=== PATIENT | female | born 1940 | race Caucasian/White ===

== ENCOUNTER 2019-01-14 13:22 | Emergency (ER) | payer OTHER ==
[2019-01-14] MEDS ORDERED: NA CHLORIDE 0.9% 500 ML ONE ×2 (13:45→15:21)
[2019-01-14 14:23] LABS: Absolute Lymphocytes (CBC) 2.4 K/uL (0.7-4.9); Basophils % 1.1 % (0-1.3); Hematocrit 42.3 % (36.0-45.0); Lymphocytes % 24.6 % (15.3-44.8); MPV 10.6 fL (7.6-11.3); RBC Red Blood Cell Count 4.36 M/uL (3.86-4.86)
[2019-01-14 14:57] LABS: Potassium 3.7 mmol/L (3.5-5.1)
[2019-01-14] MEDS ORDERED: INSULIN -REGULAR HUMAN 50 UNIT/0.5 ML ML ONE ×2 (15:21→17:19)
--- NOTE | 2019-01-14 18:20 | ER ---
Nurse's Notes [facility] Name: Jane Hyman Age: 78 yrs Sex: Female : 1940 Arrival Date: 01/14/2019 Time: 13:25 Bed 7 Private MD: Diagnosis: Hyperglycemia, unspecified Presentation: 01/14 13:25 Presenting complaint: EMS states: hyperglycemia since 12/27/18, highest reading was today aa5 at 586 and pt reports taking 70 units of Tresiba at 1215 today. 13:25 Transition of care: patient was not received from another setting of care. Onset of aa5 symptoms was December 2018. Risk Assessment: Do you want to hurt yourself or someone else? Patient reports no desire to harm self or others. Initial Sepsis Screen: Does the patient meet any 2 criteria? No. Patient's initial sepsis screen is negative. Does the patient have a suspected source of infection? No. Patient's initial sepsis screen is negative. Care prior to arrival: IV initiated. 24 G to L wrist. 13:25 Acuity: IDANIA 2 aa5 13:25 Method Of Arrival: EMS: [facility] aa5 Historical: - Allergies: 13:25 Levofloxacin; aa5 13:25 Vnkzjsj-Mmc-Qbk Reductase Inhibitors; aa5 13:25 Sulfa (Sulfonamide Antibiotics); aa5 - PMHx: 13:25 Cataracts; Hypertension; Hypothyroidism; Renal Disease; CHF; Atrial Fib; Diabetes; aa5 - PSHx: 13:25 foot surgery; Carpal Tunnel Repair; ; Hysterectomy; Tonsillectomy; shoulder aa5 surgery; Pacemaker/Defibrillator; - Ebola Screening: : No symptoms or risks identified at this time. Screenin:40 Abuse screen: Denies threats or abuse. Nutritional screening: No deficits noted. aa5 Tuberculosis screening: No symptoms or risk factors identified. Fall Risk IV access (20 points). Total Avery Fall Scale indicates No Risk (0-24 pts). Assessment: 13:25 General: Appears comfortable, Behavior is calm, cooperative. Pain: Denies pain. Neuro: aa5 Level of Consciousness is awake, alert, obeys commands, Oriented to person, place, time, situation. Cardiovascular: Heart tones S1 S2 present Rhythm is regular. Respiratory: Airway is patent Respiratory effort is even, unlabored, Respiratory pattern is regular, symmetrical, Breath sounds are clear bilaterally. GI: Abdomen is obese, Bowel sounds present X 4 quads. Abd is soft and non tender X 4 quads. Patient currently denies diarrhea, nausea, vomiting. : No signs and/or symptoms were reported regarding the genitourinary system. EENT: No signs and/or symptoms were reported regarding the EENT system. Derm: Skin is pink, warm \T\ dry. Musculoskeletal: Range of motion: intact in all extremities. 13:40 Reassessment: 2 missed attempts for blood draw, pt reports she is hard stick pt, aa5 contacted lab and they will come draw. . 13:48 Reassessment: transport tech at bedside at this time. . aa5 14:00 Reassessment: Patient is alert, oriented x 3, equal unlabored respirations, skin aa5 warm/dry/pink. Patient denies pain at this time. 15:00 Reassessment: Pt resting in bed with eyes closed respirations even and unlabored, skin aa5 is pink/warm/dry. . 16:00 Reassessment: Pt resting in bed with eyes closed, respirations even and unlabored, skin aa5 is pink/warm/dry . 18:17 Reassessment: Patient is alert, oriented x 3, equal unlabored respirations, skin aa5 warm/dry/pink. Patient denies pain at this time. 18:35 Reassessment: Patient is alert, oriented x 3, equal unlabored respirations, skin aa5 warm/dry/pink. Vital Signs: 13:25 BP 139 / 75; Pulse 88; Resp 16 S; Temp 98.4(O); Pulse Ox 96% on R/A; aa5 14:20 BP 107 / 77; Pulse 84; Resp 18 S; Pulse Ox 96% on R/A; aa5 15:00 BP 154 / 75; Pulse 85; Resp 16 S; Pulse Ox 96% on R/A; aa5 16:00 BP 137 / 72; Pulse 80; Resp 16 S; Pulse Ox 94% ; aa5 17:00 BP 132 / 73; Pulse 83; Resp 17; Pulse Ox 94% ; sv 18:33 BP 133 / 82; Pulse 80; Resp 18; Pulse Ox 96% on R/A; jb1 ED Course: 13:25 Patient arrived in ED. aa5 13:25 Arm band placed on Patient placed in an exam room, on a stretcher. aa5 13:25 Patient has correct armband on for positive identification. aa5 13:25 Maintain EMS IV. aa5 13:31 Triage completed. aa5 13:31 Johnson Dinero NP is PHCP. pm1 13:31 Pietro Arzola MD is Attending Physician. pm1 13:33 Albertina Santamaria, FLAVIA is Primary Nurse. aa5 18:35 No provider procedures requiring assistance completed. IV discontinued, intact, aa5 bleeding controlled, No redness/swelling at site. Pressure dressing applied. Administered Medications: 13:44 CANCELLED (Duplicate Order): NS 0.9% 500 ml IV at bolus once aa5 13:45 Drug: NS 0.9% 500 ml Route: IV; Rate: bolus; Site: left wrist; aa5 15:00 Follow up: IV Status: Completed infusion; IV Intake: 500ml aa5 15:20 Drug: NS 0.9% 500 ml Route: IV; Rate: bolus; Site: left wrist; aa5 16:30 Follow up: IV Status: Completed infusion; IV Intake: 500ml aa5 15:20 Drug: Insulin Regular Human 10 units {Co-Signature: mary jane (Karly Vasquez RN).} Route: aa5 IVP; Site: left wrist; 17:06 Follow up: Response: No adverse reaction; Glucose decreased aa5 17:30 Drug: Insulin Regular Human 5 units {Co-Signature: mary jane (Karly Vasquez RN).} Route: aa5 IVP; Site: left wrist; 18:17 Follow up: Response: No adverse reaction; FSBG is decreased aa5 Point of Care Testing: Blood Glucose: 18:17 Blood Glucose: 394 mg/dL; jp3 13:25 >500mg/dl aa5 Ranges: Intake: 15:00 IV: 500ml; Total: 500ml. aa5 16:30 IV: 500ml; Total: 1000ml. aa5 Outcome: 18:20 Discharge ordered by . pm1 18:35 Discharged to home aa5 18:35 Condition: stable 18:35 Discharge instructions given to patient, Instructed on discharge instructions, follow up and referral plans. Demonstrated understanding of instructions, follow-up care. 18:35 Condition: Awaiting for pt's sonPasquale, for ride home, per patient. aa5 20:34 Patient left the ED. tl1 Signatures: Shaji Leal jb1 Karly Vasquez RN RN sv Ablertina Santamaria RN RN aa5 Lou Heard RN RN tl1 Johnson Dinero, INDUSTRIAL PARAMEDIC INDUSTRIAL PARAMEDIC pm1 Isaak Ayala jp3 Karly Vasquez RN sv Corrections: (The following items were deleted from the chart) 13:35 13:25 BP 139 / 75; Pulse 88bpm; Resp 16bpm; Spontaneous; Pulse Ox 93% RA; Temp 98.4F aa5 Oral; aa5
--- NOTE | 2019-01-14 18:21 | EDPHYS ---
Physician Documentation [facility] Name: Jane Hyman Age: 78 yrs Sex: Female : 1940 Arrival Date: 01/14/2019 Time: 13:25 Bed 7 Private MD: ED Physician Pietro Arzola HPI: 01/14 15:22 This 78 yrs old Female presents to ER via EMS with complaints of High Blood pm1 Sugar. 15:22 The patient or guardian reports hyperglycemia, Treatment prior to arrival includes: pm1 taking additional insulin. Onset: The symptoms/episode began/occurred 1 month(s) ago. Associated signs and symptoms: Pertinent positives: polydipsia, polyphagia, polyuria. Current symptoms: In the emergency department the patient's symptoms have worsened. Patient with elevated blood sugars for the past 1 month. patient is taking a log and today her blood sugar was at its highest so she decided to get evaluated at the ER. Historical: - Allergies: 13:25 Levofloxacin; aa5 13:25 Qrzwrne-Lmt-Syl Reductase Inhibitors; aa5 13:25 Sulfa (Sulfonamide Antibiotics); aa5 - PMHx: 13:25 Cataracts; Hypertension; Hypothyroidism; Renal Disease; CHF; Atrial Fib; Diabetes; aa5 - PSHx: 13:25 foot surgery; Carpal Tunnel Repair; ; Hysterectomy; Tonsillectomy; shoulder aa5 surgery; Pacemaker/Defibrillator; - Ebola Screening: : No symptoms or risks identified at this time. ROS: 15:22 Constitutional: Negative for fever, chills, and weight loss, Eyes: Negative for injury, pm1 pain, redness, and discharge, ENT: Negative for injury, pain, and discharge, Neck: Negative for injury, pain, and swelling, Cardiovascular: Negative for chest pain, palpitations, and edema, Respiratory: Negative for shortness of breath, cough, wheezing, and pleuritic chest pain, Abdomen/GI: Negative for abdominal pain, nausea, vomiting, diarrhea, and constipation, Back: Negative for injury and pain, MS/Extremity: Negative for injury and deformity, Skin: Negative for injury, rash, and discoloration, Neuro: Negative for headache, weakness, numbness, tingling, and seizure. 15:22 Endocrine: Positive for polydipsia, polyphagia, polyuria. Exam: 15:22 Constitutional: This is a well developed, well nourished patient who is awake, alert, pm1 and in no acute distress. Head/Face: Normocephalic, atraumatic. Eyes: Pupils equal round and reactive to light, extra-ocular motions intact. Lids and lashes normal. Conjunctiva and sclera are non-icteric and not injected. Cornea within normal limits. Periorbital areas with no swelling, redness, or edema. ENT: Nares patent. No nasal discharge, no septal abnormalities noted. Tympanic membranes are normal and external auditory canals are clear. Oropharynx with no redness, swelling, or masses, exudates, or evidence of obstruction, uvula midline. Mucous membranes moist. Neck: Trachea midline, no thyromegaly or masses palpated, and no cervical lymphadenopathy. Supple, full range of motion without nuchal rigidity, or vertebral point tenderness. No Meningismus. Chest/axilla: Normal chest wall appearance and motion. Nontender with no deformity. No lesions are appreciated. Cardiovascular: Regular rate and rhythm with a normal S1 and S2. No gallops, murmurs, or rubs. Normal PMI, no JVD. No pulse deficits. Respiratory: Lungs have equal breath sounds bilaterally, clear to auscultation and percussion. No rales, rhonchi or wheezes noted. No increased work of breathing, no retractions or nasal flaring. Abdomen/GI: Soft, non-tender, with normal bowel sounds. No distension or tympany. No guarding or rebound. No evidence of tenderness throughout. Back: No spinal tenderness. No costovertebral tenderness. Full range of motion. Skin: Warm, dry with normal turgor. Normal color with no rashes, no lesions, and no evidence of cellulitis. MS/ Extremity: Pulses equal, no cyanosis. Neurovascular intact. Full, normal range of motion. 15:22 Neuro: Orientation: is normal, Motor: is normal, moves all fours. Vital Signs: 13:25 BP 139 / 75; Pulse 88; Resp 16 S; Temp 98.4(O); Pulse Ox 96% on R/A; aa5 14:20 BP 107 / 77; Pulse 84; Resp 18 S; Pulse Ox 96% on R/A; aa5 15:00 BP 154 / 75; Pulse 85; Resp 16 S; Pulse Ox 96% on R/A; aa5 16:00 BP 137 / 72; Pulse 80; Resp 16 S; Pulse Ox 94% ; aa5 17:00 BP 132 / 73; Pulse 83; Resp 17; Pulse Ox 94% ; sv 18:33 BP 133 / 82; Pulse 80; Resp 18; Pulse Ox 96% on R/A; jb1 MDM: 13:31 Patient medically screened. pm1 17:12 Data reviewed: vital signs. Data interpreted: Pulse oximetry: on room air is 96 %. pm1 Interpretation: normal. 18:18 Counseling: I had a detailed discussion with the patient and/or guardian regarding: the pm1 historical points, exam findings, and any diagnostic results supporting the discharge/admit diagnosis, lab results, the need for outpatient follow up, to return to the emergency department if symptoms worsen or persist or if there are any questions or concerns that arise at home. 01/14 13:29 Order name: CBC with Diff; Complete Time: 14:58 [facility] 01/14 13:29 Order name: Chem 7; Complete Time: 15:22 [facility] 01/14 16:24 Order name: Glucose; Complete Time: 17:15 aa 01/14 18:18 Order name: Glucose, Ancillary Testing; Complete Time: 18:31 EDMS Administered Medications: 13:44 CANCELLED (Duplicate Order): NS 0.9% 500 ml IV at bolus once aa5 13:45 Drug: NS 0.9% 500 ml Route: IV; Rate: bolus; Site: left wrist; aa5 15:00 Follow up: IV Status: Completed infusion; IV Intake: 500ml aa5 15:20 Drug: NS 0.9% 500 ml Route: IV; Rate: bolus; Site: left wrist; aa5 16:30 Follow up: IV Status: Completed infusion; IV Intake: 500ml aa5 15:20 Drug: Insulin Regular Human 10 units {Co-Signature: mary jane (Karly Vasquez RN).} Route: aa5 IVP; Site: left wrist; 17:06 Follow up: Response: No adverse reaction; Glucose decreased aa5 17:30 Drug: Insulin Regular Human 5 units {Co-Signature: mary jane (Karly Vasquez RN).} Route: aa5 IVP; Site: left wrist; 18:17 Follow up: Response: No adverse reaction; FSBG is decreased aa5 Point of Care Testing: Blood Glucose: 18:17 Blood Glucose: 394 mg/dL; jp3 13:25 >500mg/dl aa5 Ranges: Critical Glucose Levels:Adult <50 mg/dl or >400 mg/dl <40 mg/dl or >180 mg/dl Disposition: 01/15 08:59 Co-signature as Attending Physician, Pietro Arzola MD I agree with the assessment and kdr plan of care. Disposition: 01/14/19 18:20 Discharged to Home. Impression: Hyperglycemia, unspecified. - Condition is Stable. - Discharge Instructions: Hyperglycemia, Blood Glucose Monitoring, Adult. - Medication Reconciliation Form, Thank You Letter, Antibiotic Education, Prescription Opioid Use form. - Follow up: Emergency Department; When: As needed; Reason: Worsening of condition. Follow up: Private Physician; When: 2 - 3 days; Reason: Recheck today's complaints, Continuance of care, Re-evaluation by your physician. - Problem is new. - Symptoms have improved. Signatures: Dispatcher [employer] [facility] Pietro Arzola MD MD kdr Albertina Santamaria, RN RN aa5 Lou Heard RN RN tl1 Johnson Dinero, LOSS PREVENTION INVESTIGATOR LOSS PREVENTION INVESTIGATOR pm1 Karly Vasquez RN sv Corrections: (The following items were deleted from the chart) 01/14 13:44 13:44 NS 0.9% 500 ml IV at bolus once ordered. aa5 aa5 17:48 13:27 GLUCOSE+C.LAB.BRZ ordered. [facility] EDKY 20:34 18:20 01/14/2019 18:20 Discharged to Home. Impression: Hyperglycemia, unspecified. tl1 Condition is Stable. Forms are Medication Reconciliation Form, Thank You Letter, Antibiotic Education, Prescription Opioid Use. Follow up: Emergency Department; When: As needed; Reason: Worsening of condition. Follow up: Private Physician; When: 2 - 3 days; Reason: Recheck today's complaints, Continuance of care, Re-evaluation by your physician. Problem is new. Symptoms have improved. pm1
[2019-01-14 21:22] VITALS: TEMP 98.4
[2019-01-14 21:29] VITALS: BP 133/82; O2SAT 96
== END 2019-01-14 20:34 | disposition home or self-care (01) ==
LOC: ER 13:22
DX: E11.65 Type 2 diabetes mellitus with hyperglycemia (principal); I12.9 Hypertensive chronic kidney disease with stage 1 through stage 4 chronic kidney disease, or unspecified chronic kidney disease; E11.22 Type 2 diabetes mellitus with diabetic chronic kidney disease; N18.9 Chronic kidney disease, unspecified; Z88.1 Allergy status to other antibiotic agents; Z88.2 Allergy status to sulfonamides; Z88.8 Allergy status to other drugs, medicaments and biological substances; Z95.810 Presence of automatic (implantable) cardiac defibrillator
CPT/HCPCS: 36415; 80048; 82947; 82962; 85025; 96361; 96374; 99283

== ENCOUNTER 2019-01-18 12:48 | Observation (INO) | payer OTHER ==
--- NOTE | 2019-01-18 13:41 | RAD REPORT ---
EXAM DESCRIPTION: RAD - Chest Single View - 01/18/2019 1:19 pm CLINICAL HISTORY: Fall, weakness, dizziness, chest pain COMPARISON: April 2017 TECHNIQUE: AP portable chest image was obtained 1315 hours . FINDINGS: Low lung volumes are noted. No peripheral mass or consolidation. Defibrillator has been pl aced since the prior study. Heart and vasculature are normal. No measurable pleural effusion and no p neumothorax. No acute bony abnormality seen. No acute aortic findings suspected. IMPRESSION: No acute cardiopulmonary process.
--- NOTE | 2019-01-18 13:44 | RAD REPORT ---
EXAM DESCRIPTION: CT - [id number] - 01/18/2019 1:24 pm CLINICAL HISTORY: , head and neck injury COMPARISON: MR IAC examination November 2018 TECHNIQUE: Axial 5 mm thick images of the head were obtained. Axial 2 mm thick images of the cervic al spine were obtained with sagittal and coronal reconstruction images generated and reviewed. All CT scans are performed using dose optimization technique as appropriate and may include automated exposure control or mA/KV adjustment according to patient size. FINDINGS: No intracranial hemorrhage, mass, edema or acute intracranial finding. No suspicion for ac [place] infarction. Atrophy and chronic ischemic changes are present. Mastoid air cells and paranasal sin uses are clear of acute finding. No globe or orbit abnormality seen. Patient has normal variant hyper ostosis frontalis interna. Dense arterial tree calcifications. Cervical body height and alignment are normal. No disk space narrowing. No fracture or acute bony abn ormality. Central canal detail is inherently limited. No paraspinal mass or hematoma. IMPRESSION: Negative CT head examination for acute or significant finding. Patient has underlying at rophy and chronic ischemic change. Negative CT cervical spine examination for acute or significant finding.
[2019-01-18 14:00] LABS: Absolute Lymphocytes (CBC) 2.3 K/uL (0.7-4.9); Basophils % 0.7 % (0-1.3); Hematocrit 43.4 % (36.0-45.0); Lymphocytes % 19.6 % (15.3-44.8); MPV 9.8 fL (7.6-11.3); RBC Red Blood Cell Count 4.63 M/uL (3.86-4.86)
[2019-01-18 14:03] LABS: Protime INR 1.75
[2019-01-18 14:15] LABS: ALT/SGPT 16 U/L (12-78); AST/SGOT 14 U/L (15-37); Albumin 2.8 g/dL (3.4-5.0); Alkaline Phosphatase 110 U/L (45-117); BUN Blood Urea Nitrogen 19 mg/dL (7-18); Bicarbonate 29 mmol/L (21-32); Bilirubin Direct 0.1 mg/dL (0-0.2); Bilirubin Total 0.5 mg/dL (0.2-1.0); Glucose Level 360 mg/dL (74-106); NT PRO-BNP 681 pg/mL (<450); Potassium 3.3 mmol/L (3.5-5.1); Protein, Total 6.9 g/dL (6.4-8.2); Sodium Level 137 mmol/L (136-145); Troponin (Emerg Dept Use Only) < 0.02 ng/mL (0.0-0.045)
[2019-01-18] MEDS ORDERED: INSULIN -REGULAR HUMAN 50 UNIT/0.5 ML ML ONE (15:08)
[2019-01-18] MEDS ORDERED: NA CHLORIDE 0.9% 500 ML ONE (15:08)
--- NOTE | 2019-01-18 15:13 | EDPHYS ---
Physician Documentation [facility] Name: Jane Hyman Age: 78 yrs Sex: Female : 1940 Arrival Date: 01/18/2019 Time: 12:53 Bed 19 Private MD: ED Physician Shawn Khan HPI: 01/18 13:05 This 78 yrs old Female presents to ER via EMS with complaints of Dizziness, cp Fall Injury. 13:05 The patient presents with lightheadedness. cp 13:05 Onset: The symptoms/episode began/occurred just prior to arrival. Context: occurred at home, just prior to the episode the patient experienced lightheadedness. Associated signs and symptoms: Pertinent positives: syncope, Pertinent negatives: abdominal pain, chest pain, focal weakness, vomiting. Patient's baseline: Neuro: alert and fully oriented, Motor: no deficits, Ambulation: walks without assistance, Speech: normal. Patient was found on ground by son in home. Patient unable to recall events prior to fall. Historical: - Allergies: 12:56 Levofloxacin; em 12:56 Zyabonp-Ruh-Ucp Reductase Inhibitors; em 12:56 Sulfa (Sulfonamide Antibiotics); em - Home Meds: 14:11 Xarelto 20 mg Oral tab once daily [Active]; spironolactone 50 mg Oral tab 1 tab once em daily [Active]; Lasix 40 mg Oral tab 1 tab once daily [Active]; levothyroxine 125 mcg tab 1 tab once daily [Active]; Metoprolol Tartrate Oral [Active]; Hydralazine Oral [Active]; Deplin (algal oil) oral oral [Active]; - PMHx: 12:56 Atrial Fib; Cataracts; CHF; Diabetes; Diabetes - NIDDM; Hypertension; Hypothyroidism; em Irregular heart rate; Renal Disease; ADD/ADHD; - PSHx: 12:56 foot surgery; Carpal Tunnel Repair; ; Hysterectomy; Tonsillectomy; shoulder em surgery; Pacemaker/Defibrillator; - Immunization history:: Adult Immunizations unknown. - Social history:: Smoking status: Patient/guardian denies using tobacco. - Ebola Screening: : Patient negative for fever greater than or equal to 101.5 degrees Fahrenheit, and additional compatible Ebola Virus Disease symptoms Patient denies exposure to infectious person Patient denies travel to an Ebola-affected area in the 21 days before illness onset No symptoms or risks identified at this time. ROS: 13:10 Constitutional: Negative for fever, poor PO intake. cp 13:10 Eyes: Negative for injury, pain, redness, and discharge. cp 13:10 ENT: Negative for drainage from ear(s), ear pain, sore throat, difficulty swallowing, cp difficulty handling secretions. 13:10 Neck: Negative for stiffness. 13:10 Cardiovascular: Negative for chest pain, edema, palpitations. 13:10 Respiratory: Negative for cough, shortness of breath, wheezing. 13:10 Abdomen/GI: Negative for abdominal pain, nausea, vomiting, and diarrhea, black/tarry stool, rectal bleeding. 13:10 Neuro: Positive for syncope, Negative for altered mental status, headache, weakness. 13:10 All other systems are negative. cp Exam: 13:20 Constitutional: The patient appears in no acute distress, alert, awake, cp non-diaphoretic, non-toxic, well developed, well nourished, obese. 13:20 Head/Face: Normocephalic, atraumatic. cp 13:20 Eyes: Periorbital structures: appear normal, Pupils: equal, round, and reactive to light and accomodation, Extraocular movements: intact throughout, Conjunctiva: normal, no exudate, no injection, Sclera: no appreciated abnormality, Lids and lashes: appear normal, bilaterally. 13:20 ENT: External ear(s): are unremarkable, Ear canal(s): are normal, clear, TM's: dullness, bilaterally, Nose: is normal, Mouth: Lips: moist, Oral mucosa: pink and intact, moist, Posterior pharynx: is normal, airway is patent, no erythema, no exudate. 13:20 Neck: C-spine: vertebral tenderness, is not appreciated, crepitus, is not appreciated. 13:20 Chest/axilla: Inspection: normal, Palpation: is normal, no crepitus, no tenderness. 13:20 Cardiovascular: Rate: normal, Rhythm: regular, Edema: is not appreciated, JVD: is not appreciated. 13:20 Respiratory: the patient does not display signs of respiratory distress, Respirations: normal, no use of accessory muscles, no retractions, no splinting, no tachypnea, Breath sounds: are clear throughout. 13:20 Abdomen/GI: Inspection: abdomen appears normal, Bowel sounds: active, all quadrants, Palpation: abdomen is soft and non-tender, in all quadrants, involuntary guarding, is not appreciated. 13:20 Back: pain, is absent, ROM is normal. 13:20 Skin: no rash present. 13:20 Neuro: Orientation: to person, place, situation, Mentation: is normal, Cerebellar function: is grossly normal, Motor: moves all fours, strength is normal. 14:15 ECG was reviewed by the Attending Physician. Vital Signs: 12:56 BP 110 / 59; Pulse 87; Resp 16; Temp 98.6; Pulse Ox 95% on R/A; Weight 119.29 kg; em Height 5 ft. 4 in. (162.56 cm); Pain 0/10; 14:00 BP 121 / 70; Pulse 77; Resp 18; Pulse Ox 99% on R/A; Pain 0/10; em 15:00 BP 158 / 92; Pulse 80; Resp 16; Pulse Ox 99% on R/A; em 16:00 BP 113 / 67; Pulse 85; Resp 15; Pulse Ox 99% on R/A; Pain 0/10; em 16:39 BP 112 / 75; Pulse 85; Resp 16; Temp 98.6(O); Pulse Ox 96% on R/A; Pain 0/10; em 12:56 Body Mass Index 45.14 (119.29 kg, 162.56 cm) em Mic Coma Score: 12:56 Eye Response: spontaneous(4). Verbal Response: oriented(5). Motor Response: obeys ss commands(6). Total: 15. Trauma Score (Adult): 12:56 Eye Response: spontaneous(1); Verbal Response: oriented(1); Motor Response: obeys ss commands(2); Systolic BP: > 89 mm Hg(4); Respiratory Rate: 10 to 29 per min(4); [place] Score: 15; Trauma Score: 12 MDM: 12:58 Patient medically screened. [facility] 14:00 Differential diagnosis: cardiac arrhythmia, CVA, head injury, hypovolemia, syncope. 15:00 Data reviewed: vital signs, nurses notes, lab test result(s), radiologic studies, CT cp scan, plain films. 15:05 Physician consultation: Dawn Whittaker MD was called at 15:05, was contacted at 15:05, cp regarding admission, to the telemetry unit. patient's condition. 01/18 13:02 Order name: Basic Metabolic Panel; Complete Time: 14:47 01/18 14:47 Interpretation: Normal except: K 3.3; GLUC 360; BUN 19; CRE 1.50; GFR 34. 01/18 13:02 Order name: CBC with Diff; Complete Time: 14:47 01/18 13:02 Order name: LFT's; Complete Time: 14:47 01/18 13:02 Order name: Magnesium; Complete Time: 14:47 01/18 13:02 Order name: NT PRO-BNP; Complete Time: 14:47 01/18 13:02 Order name: PT-INR; Complete Time: 14:47 01/18 13:02 Order name: Troponin (emerg Dept Use Only); Complete Time: 14:47 01/18 13:02 Order name: XRAY Chest (1 view); Complete Time: 13:56 01/18 13:56 Interpretation: Report review. 01/18 13:03 Order name: CT Head C Spine; Complete Time: 13:56 01/18 13:56 Interpretation: Reviewed report. 01/18 14:48 Order name: Urine Microscopic Only; Complete Time: 16:17 01/18 15:08 Order name: CPK; Complete Time: 16:17 01/18 16:07 Order name: Urine Dipstick--Ancillary (enter results) eb 01/18 16:10 Order name: Urine Dipstick-Ancillary; Complete Time: 16:17 EDMS 01/18 13:02 Order name: EKG; Complete Time: 13:03 01/18 13:02 Order name: Cardiac monitoring; Complete Time: 14:26 01/18 13:02 Order name: EKG - Nurse/Tech; Complete Time: 14:27 01/18 13:02 Order name: IV Saline Lock; Complete Time: 14:27 01/18 13:02 Order name: Labs collected and sent; Complete Time: 14:27 01/18 13:02 Order name: O2 Per Protocol; Complete Time: 14:27 01/18 13:02 Order name: O2 Sat Monitoring; Complete Time: 14:27 01/18 13:02 Order name: Accucheck Blood Glucose; Complete Time: 14:26 cp 01/18 14:48 Order name: Urine Dipstick-Ancillary (obtain specimen); Complete Time: 16:26 cp EC:15 Rate is 77 beats/min. Rhythm is regular, Paced. [place] interval is normal. QRS interval is cp prolonged at 124 msec. QT interval is normal. Interpreted by me. Reviewed by me. Administered Medications: 15:23 Drug: Insulin Regular Human 10 units {Co-Signature: em (Alex Reynaga ENVIRONMENTAL WE[employer]WLER).} Route: IVP; ss Site: left antecubital; 16:42 Follow up: Response: No adverse reaction; Blood sugar is lowered em 15:23 Drug: NS 0.9% 500 ml Route: IV; Rate: bolus; Site: left antecubital; ss 17:19 Follow up: IV Status: Completed infusion; IV Intake: 500ml em 16:20 Not Given (Other Intervention Used): Rocephin - (cefTRIAXone) 1 grams IVPB once over 30 ss mins; (mix in 50 mL NS) 16:36 Drug: Rocephin 1 grams Route: IV; Rate: calculated rate; Site: left antecubital; ss 16:42 Follow up: Response: No adverse reaction; IV Status: Completed infusion; IV Intake: 10mlem Point of Care Testing: Blood Glucose: 16:39 Blood Glucose: 238 mg/dL; em Ranges: Critical Glucose Levels:Adult <50 mg/dl or >400 mg/dl <40 mg/dl or >180 mg/dl Disposition: 01/19 09:17 Co-signature as Attending Physician, Shawn Khan MD I agree with the assessment and [facility] plan of care. Disposition: 01/18/19 15:12 Hospitalization ordered by Dawn Whittaker for Observation. Preliminary diagnosis are Syncope and collapse, Urinary tract infection, site not specified. - Bed requested for Telemetry/MedSurg (observation). - Status is Observation. em - Condition is Stable. - Problem is new. - Symptoms have improved. UTI on Admission? Yes Signatures: Dispatcher [employer] Asia Chung RN RN Shawn Khan MD MD cha Munoz, Edgar, LVN LVN em Niecy Guerrero RN RN Shawn Jani PA PA Alex Reynaga ENVIRONMENTAL WE[employer] CRAWLER em Corrections: (The following items were deleted from the chart) 01/18 16:13 15:12 Hospitalization Ordered by Dawn Whittaker MD for Observation. Preliminary diagnosis dw is Syncope and collapse. Bed requested for Telemetry/MedSurg (observation). Status is Observation. Condition is Stable. Problem is new. Symptoms have improved. UTI on Admission? No. cp 16:18 16:13 01/18/2019 15:12 Hospitalization Ordered by Dawn Whittaker MD for Observation. cp Preliminary diagnosis is Syncope and collapse. Bed requested for Telemetry/MedSurg (observation). Status is Observation. Condition is Stable. Problem is new. Symptoms have improved. UTI on Admission? No. dw 16:52 16:18 01/18/2019 15:12 Hospitalization Ordered by Dawn Whittaker MD for Observation. dw Preliminary diagnosis is Syncope and collapse; Urinary tract infection, site not specified. Bed requested for Telemetry/MedSurg (observation). Status is Observation. Condition is Stable. Problem is new. Symptoms have improved. UTI on Admission? Yes. cp 17:22 16:52 01/18/2019 15:12 Hospitalization Ordered by Dawn Whittaker MD for Observation. em Preliminary diagnosis is Syncope and collapse; Urinary tract infection, site not specified. Bed requested for Telemetry/MedSurg (observation). Status is Observation. Condition is Stable. Problem is new. Symptoms have improved. UTI on Admission? Yes. dw
--- NOTE | 2019-01-18 15:13 | ER ---
Nurse's Notes 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 Transition of care: patient was not received from another setting of care. Onset of symptoms was January 18, 2019. Risk Assessment: Do you want to hurt yourself or someone else? Patient reports no desire to harm self or others. Initial Sepsis Screen: Does the patient meet any 2 criteria? No. Patient's initial sepsis screen is negative. Does the patient have a suspected source of infection? No. Patient's initial sepsis screen is negative. Care prior to arrival: None. 12:53 Method Of Arrival: EMS: [facility] em 12:53 Care prior to arrival: Medication(s) given: Normal saline infusion, 350 mL Phenergan, em 12.5 mg. 12:53 Mechanism of Injury: Fall from standing position. Trauma event details: Injury occurred ss in the [facility], Injury occurred: at home. Injury occurred: January 18, 2019. 12:58 Acuity: IDANIA 3 ss Triage Assessment: 12:53 General: Appears in no apparent distress. Behavior is calm, cooperative, Denies fever, ss feeling ill, fatigue, chills. Pain: Denies pain. EENT: Nares are clear Oral mucosa is moist. Neuro: Level of Consciousness is awake, alert, obeys commands, Oriented to person, place, Reports intermittent dizziness. Cardiovascular: Capillary refill < 3 seconds is brisk in bilateral fingers Patient's skin is warm and dry. Respiratory: Airway is patent Respiratory effort is even, unlabored, Respiratory pattern is regular, symmetrical. GI: Patient currently denies abdominal pain, diarrhea, nausea, vomiting. : No signs and/or symptoms were reported regarding the genitourinary system. Musculoskeletal: Circulation, motion, and sensation intact. Range of motion: intact in all extremities. 15:41 : skin is very red under breasts and groin/ pelvic area. Antifungal treatment/ ss barrier cream has been applied to area and patient has been cleaned thoroughly . Patient is grateful for care received thus far, and verbalizes understanding that they may need more help in the future at home with ADLs. Trauma Activation: Not Applicable Physician: ED Physician; Name: ; Notified At: ; Arrived At: Physician: General Surgeon; Name: ; Notified At: ; Arrived At: Physician: Radiology; Name: ; Notified At: ; Arrived At: Physician: Respiratory; Name: ; Notified At: ; Arrived At: Physician: Lab; Name: ; Notified At: ; Arrived At: Historical: - Allergies: 12:56 Levofloxacin; em 12:56 Hssbthe-Sjx-Ugk Reductase Inhibitors; em 12:56 Sulfa (Sulfonamide Antibiotics); em - Home Meds: 14:11 Xarelto 20 mg Oral tab once daily [Active]; spironolactone 50 mg Oral tab 1 tab once em daily [Active]; Lasix 40 mg Oral tab 1 tab once daily [Active]; levothyroxine 125 mcg tab 1 tab once daily [Active]; Metoprolol Tartrate Oral [Active]; Hydralazine Oral [Active]; Deplin (algal oil) oral oral [Active]; - PMHx: 12:56 Atrial Fib; Cataracts; CHF; Diabetes; Diabetes - NIDDM; Hypertension; Hypothyroidism; em Irregular heart rate; Renal Disease; ADD/ADHD; - PSHx: 12:56 foot surgery; Carpal Tunnel Repair; ; Hysterectomy; Tonsillectomy; shoulder em surgery; Pacemaker/Defibrillator; - Immunization history:: Adult Immunizations unknown. - Social history:: Smoking status: Patient/guardian denies using tobacco. - Ebola Screening: : Patient negative for fever greater than or equal to 101.5 degrees Fahrenheit, and additional compatible Ebola Virus Disease symptoms Patient denies exposure to infectious person Patient denies travel to an Ebola-affected area in the 21 days before illness onset No symptoms or risks identified at this time. Screenin:53 Abuse screen: Denies threats or abuse. Nutritional screening: No deficits noted. em Tuberculosis screening: No symptoms or risk factors identified. Fall Risk None identified. Primary Survey: 12:53 NO uncontrolled hemorrhage observed. A: The patient is alert. Airway: patent, No ss supplemental oxygen in use on arrival. Oral cavity: clear, Trachea midline. Breathing/Chest: Respiratory pattern: regular, Respiratory effort: spontaneous, unlabored, Breath sounds: clear, bilaterally. Chest inspection: symmetrical rise and fall of the chest. Circulation: Pulses: palpable right radial artery, right posterior tibial artery, left radial artery and left posterior tibial artery. Skin color: pink, Skin temperature: warm. Disability Alert. Exposure/Environment: There is no evidence of uncontrolled external bleeding. 13:30 Reassessment Airway Airway Patent Oxygen No O2 Oral cavity Clear Trachea Midline ss Breathing/Chest Respiratory pattern Regular Circulation Pulses Palpable Color [place] Temperature Warm Disability Alert. Secondary Survey: 12:53 HEENT: No deficits noted. Musculoskeletal: Circulation, motion, and sensation intact. ss Range of motion: intact in all extremities, Swelling absent. Assessment: 12:53 General: SEE TRIAGE ASSESSMENT. ss 13:30 Reassessment: Patient appears in no apparent distress at this time. Patient and/or em family updated on plan of care and expected duration. Pain level reassessed. Patient is alert, oriented x 3, equal unlabored respirations, skin warm/dry/pink. 14:29 Reassessment: Patient appears in no apparent distress at this time. Patient and/or em family updated on plan of care and expected duration. Pain level reassessed. Patient is alert, oriented x 3, equal unlabored respirations, skin warm/dry/pink. still reports being dizzy. 15:00 Reassessment: Patient appears in no apparent distress at this time. Patient and/or em family updated on plan of care and expected duration. Pain level reassessed. Patient is alert, oriented x 3, equal unlabored respirations, skin warm/dry/pink. Patient denies pain at this time. Patient states feeling better. Patient states symptoms have improved. 16:38 Reassessment: Patient appears in no apparent distress at this time. Patient and/or em family updated on plan of care and expected duration. Pain level reassessed. Patient is alert, oriented x 3, equal unlabored respirations, skin warm/dry/pink. Patient states feeling better. Patient states symptoms have improved. Vital Signs: 12:56 BP 110 / 59; Pulse 87; Resp 16; Temp 98.6; Pulse Ox 95% on R/A; Weight 119.29 kg; em Height 5 ft. 4 in. (162.56 cm); Pain 0/10; 14:00 BP 121 / 70; Pulse 77; Resp 18; Pulse Ox 99% on R/A; Pain 0/10; em 15:00 BP 158 / 92; Pulse 80; Resp 16; Pulse Ox 99% on R/A; em 16:00 BP 113 / 67; Pulse 85; Resp 15; Pulse Ox 99% on R/A; Pain 0/10; em 16:39 BP 112 / 75; Pulse 85; Resp 16; Temp 98.6(O); Pulse Ox 96% on R/A; Pain 0/10; em 12:56 Body Mass Index 45.14 (119.29 kg, 162.56 cm) em Mic Coma Score: 12:56 Eye Response: spontaneous(4). Verbal Response: oriented(5). Motor Response: obeys ss commands(6). Total: 15. Trauma Score (Adult): 12:56 Eye Response: spontaneous(1); Verbal Response: oriented(1); Motor Response: obeys ss commands(2); Systolic BP: > 89 mm Hg(4); Respiratory Rate: 10 to 29 per min(4); [place] Score: 15; Trauma Score: 12 ED Course: 12:53 Patient arrived in ED. em 12:53 Shawn Jain PA is PHCP. cp 12:53 Shawn Khan MD is Attending Physician. cp 12:56 Arm band placed on. em 12:56 Patient has correct armband on for positive identification. Placed in gown. Bed in low em position. Call light in reach. Side rails up X2. Pulse ox on. NIBP on. Sitter at bedside. 12:56 Maintain EMS IV. Dressing intact. Good blood return noted. Site clean \T\ dry. Gauge \T\ em site: 20 LAC. 12:56 Patient maintains SpO2 saturation greater than 95% on room air. ss 12:58 Triage completed. ss 13:00 Thermoregulation: warm blanket given to patient. ss 13:20 XRAY Chest (1 view) In Process Unspecified. EDMS 13:24 CT completed. Patient tolerated procedure well. Patient moved back from CT. mw3 13:26 CT Head C Spine In Process Unspecified. EDMS 13:43 Alex Reynaga LVN is Primary Nurse. em 15:12 Dawn Whittaker MD is Hospitalizing Provider. cp 17:14 No provider procedures requiring assistance completed. Patient admitted, IV remains in em place. Administered Medications: 15:23 Drug: Insulin Regular Human 10 units {Co-Signature: em (Alex Reynaga LVN).} Route: IVP; ss Site: left antecubital; 16:42 Follow up: Response: No adverse reaction; Blood sugar is lowered em 15:23 Drug: NS 0.9% 500 ml Route: IV; Rate: bolus; Site: left antecubital; ss 17:19 Follow up: IV Status: Completed infusion; IV Intake: 500ml em 16:20 Not Given (Other Intervention Used): Rocephin - (cefTRIAXone) 1 grams IVPB once over 30 ss mins; (mix in 50 mL NS) 16:36 Drug: Rocephin 1 grams Route: IV; Rate: calculated rate; Site: left antecubital; ss 16:42 Follow up: Response: No adverse reaction; IV Status: Completed infusion; IV Intake: 10mlem Point of Care Testing: Blood Glucose: 16:39 Blood Glucose: 238 mg/dL; em Ranges: Intake: 16:30 PO: 100ml (Water); Total: 100ml. ss 16:42 IV: 10ml; Total: 110ml. em 17:19 IV: 500ml; Total: 610ml. em Outcome: 15:12 Decision to Hospitalize by Provider. cp 17:14 Admitted to Med/surg accompanied by tech, family with patient, via stretcher, room 207, em Report called to FLAVIA Jeffery 17:14 Condition: good 17:14 Instructed on the need for admit, Demonstrated understanding of instructions. 17:20 Patient's length of stay in the Emergency Department was greater than 2 hours. ss AdmissionPatient's length of stay extended due to 17:22 Patient left the ED. em Signatures: Dispatcher [employer] Alex Gr LVN LVN em Niecy Guerrero RN RN Shawn Jain PA PA cp Willis, Michelle mw3 lAex Reynaga LVN em Corrections: (The following items were deleted from the chart) 14:28 12:56 Pulse 87bpm; Resp 16bpm; Pulse Ox 95% RA; Temp 98.6F; 119.29 kg; Height 5 ft. 4 em in.; BMI: 45.1; Pain 0/10; em 15:59 12:53 Derm: Skin is intact, is healthy with good turgor, Skin is pink, warm \T\ dry. ss normal, ss 16:26 15:41 : skin is very red under breasts and groin/ pelvic area. Antifungal treatment/ ss barrier cream has been applied to area and patient has been cleaned thoroughly . Patient is grateful for care received thus far, and verbalizes understanding that they may need more help in the future at home with ADLs ss 16:27 15:41 : skin is very red under breasts and groin/ pelvic area. Antifungal treatment/ ss barrier cream has been applied to area and patient has been cleaned thoroughly . Patient is grateful for care received thus far, and verbalizes understanding that they may need more help in the future at home with ADLs ss 16:29 15:41 : skin is very red under breasts and groin/ pelvic area. Antifungal treatment/ ss barrier cream has been applied to area and patient has been cleaned thoroughly . Patient is grateful for care received thus far, and verbalizes understanding that they may need more help in the future at home with ADLs
[2019-01-18 16:07] LABS: Urine Bacteria LOADED /HPF (<20); Urine RBC NONE SEEN /HPF (NONE SEEN)
[2019-01-18 16:08] LABS: Urine Culture Reflex Order REFLEXED
[2019-01-18 16:09] LABS: Urine Blood NEGATIVE (NEG); Urine Glucose 2+ (NEG); Urine Protein NEGATIVE (NEG); Urine pH 5.5 (5.0-7.0)
[2019-01-18] MEDS ORDERED: CEFTRIAXONE/SWI 1gm 1 GM/10 ML SYR ONE (16:30)
--- NOTE | 2019-01-18 17:35 | P.HP ---
Certification for Inpatient Patient admitted to: Observation With expected LOS: <2 Midnights Practitioner: I am a practitioner with admitting privileges, knowledge of patient current condition, hospital course, and medical plan of care. Services: Services provided to patient in accordance with Admission requirements found in Title 42 Section 412.3 of the Code of Federal Regulations Patient History Date of Service: 01/18/19 Primary Care Provider: Dr. Zarate, Cardio: Dr. Funez Reason for admission: Syncopal episode History of Present Illness: This is a 78-year-old female with past medical history of atrial fibrillation, CHF, eem-wkmhfst-nikrbiehc diabetes, hypertension, hypothyroidism and chronic renal disease who presented to the emergency room with episode of syncope. Per patient and son at bedside, patient fell this morning. She had her face but not her head. She was sitting up in her chair, sleeping. It seems that when she woke up and got up from the chair, she fell. She denies any symptoms prior to the fall. She denied any dizziness, chest pain, shortness of breath at that time. She states that after the fall though she has been more dizzy. She also endorses burning on urination, frequency and urgency of urination. She is not sure how long this has been going on. In the ER, blood pressure was 110/59, heart rate of 87, respirations 16, afebrile at 98.6, 95% on room air and a BMI of 45.14. Her labs was remarkable for hypo kalemia, creatinine of 1.5, blood sugar of 360. Her urine studies was remarkable for nitrite and loaded with bacteria. Her chest x-ray was without any acute abnormalities. Head CT was negative. In the ER, she received Rocephin, insulin, IV fluids 500 bolus. At the time of my exam, she was alert oriented x3, in no acute distress and hemodynamically stable. She states her dizziness is kind of improved at this time. Allergies levofloxacin [From Levaquin] Allergy (Verified 04/30/17 20:09) Hives Ehkbfqb-Hmr-Mbs Reductase Inhibitor Allergy (Verified 04/30/17 20:09) Hives Sulfa (Sulfonamide Antibiotics) [Sulfa(Sulfonamide Antibiotics)] Allergy ( Verified 04/30/17 20:09) Hives Home medications list reviewed: No (Patient does not have medication list at this time) Home Medications: Insulin 70/30 NPH/Reg Human [Novolin 70/30*] 40 unit SQ BID 09/20/15 Amiodarone HCl [Pacerone] 200 mg PO BID 04/30/17 Levomefolate/Algal Oil [Deplin-Algal Oil 15 mg Capsule] 15 mg PO BID 04/30/17 Aspirin [Ecotrin 81 MG] 81 mg PO DAILY 07/15/17 Cholecalciferol (Vitamin D3) [Dialyvite Vitamin D3 Max] 50,000 unit PO EVERY 7TH DAY 07/15/17 Furosemide [Lasix] 20 mg PO DAILY 07/15/17 Hydralazine [Apresoline] 25 mg PO TID 07/15/17 Isosorbide Dinitrate 10 mg PO TID 07/15/17 Levothyroxine [Synthroid] 112 mcg PO [id number] 07/15/17 Metoprolol Succinate [Toprol Xl] 50 mg PO DAILY 07/15/17 Potassium Chloride 10 meq PO DAILY 07/15/17 Ranolazine [Ranexa] 500 mg PO BID 07/15/17 Rivaroxaban [Xarelto] 15 mg PO DAILY 07/15/17 Spironolactone [Aldactone] 12.5 mg PO DAILY 07/15/17 Ticagrelor [Brilinta] 90 mg PO BID 07/15/17 - Past Medical/Surgical History Diabetic: Yes -: HTN -: kidney stones -: DM -: Hypertension -: A.Fib -: CAD -: Chronic systolic CHF -: cataracts -: hypothyroidism -: renal disease -: Hysterectomy -: Ureter stent -: tonsillectomy -: -: carpal tunnel repair -: shoulder sx tumor removal L -: cardioversion May 2012 -: Stent placement 03/08 x 5 - Social History Alcohol use: No CD- Drugs: No Caffeine use: No Review of Systems 10-point ROS is otherwise unremarkable Physical Examination - Vital Signs Temperature: 98.6 F Blood Pressure: 121/70 Pulse: 77 Respirations: 18 - Physical Exam General: Alert, In no apparent distress, Oriented x3 HEENT: Atraumatic, PERRLA, Mucous membr. moist/pink, EOMI, Sclerae nonicteric Neck: Supple, 2+ carotid pulse no bruit, No LAD, Without JVD or thyroid abnormality Respiratory: Clear to auscultation bilaterally, Normal air movement Cardiovascular: Regular rate/rhythm, Normal S1 S2 Gastrointestinal: Normal bowel sounds, No tenderness Musculoskeletal: No tenderness Integumentary: No rashes Neurological: Normal gait, Normal speech, Normal strength at 5/5 x4 extr, Normal tone, Normal affect Lymphatics: No axilla or inguinal lymphadenopathy - Studies Laboratory Data (last 24 hrs) 01/18/19 13:45: PT 20.2 H, INR 1.75 01/18/19 13:45: WBC 11.8 H D, Hgb 14.5, Hct 43.4, Plt Count 217 01/18/19 13:45: Sodium 137, Potassium 3.3 L, BUN 19 H, Creatinine 1.50 H, Glucose 360 H, Magnesium 2.0, Total Bilirubin 0.5, AST 14 L, ALT 16, Alkaline Phosphatase 110 Assessment and Plan - Problems (Diagnosis) (1) Syncopal episodes Current Visit: Yes Status: Acute Plan: Unsure of etiology, likely secondary to urinary tract infection. -will evaluate with carotid ultrasound as well as an echo, due to patient's underlying medical diseases. -continue to monitor -continue to monitor labs -hold IV fluids due to CHF history -continue antibiotics Qualifiers: Syncope type: unspecified Qualified Code(s): R55 - Syncope and collapse (2) Atrial fibrillation Current Visit: No Status: Chronic Plan: Stable, will restart home medication Qualifiers: Atrial fibrillation type: chronic Qualified Code(s): I48.2 - Chronic atrial fibrillation (3) CHF (congestive heart failure) Current Visit: No Status: Chronic Plan: Restart home medications. -echo pending Qualifiers: Heart failure type: combined systolic and diastolic Heart failure chronicity: chronic Qualified Code(s): I50.42 - Chronic combined systolic ( congestive) and diastolic (congestive) heart failure (4) CAD (coronary artery disease) Onset Date: 05/01/17 Current Visit: No Status: Chronic Qualifiers: Coronary Disease-Associated Artery/Lesion type: [place] artery [place] vs. transplanted heart: [place] heart Associated angina: without angina Qualified Code(s): I25.10 - Atherosclerotic heart disease of [place] coronary artery without angina pectoris (5) Chronic renal disease Current Visit: No Status: Chronic Plan: Creatinine seems to be at baseline Qualifiers: Chronic kidney disease stage: stage 3 (moderate) Qualified Code(s): N18.3 - Chronic kidney disease, stage 3 (moderate) (6) Diabetes mellitus Onset Date: 05/01/17 Current Visit: No Status: Chronic Plan: Accu-Cheks and mild sliding scale insulin. -Will monitor blood sugars and adjust insulin as needed. Qualifiers: Diabetes mellitus type: type 2 Diabetes mellitus buttermaker insulin use: without fdc use Diabetes mellitus complication status: with hyperglycemia Qualified Code(s): E11.65 - Type 2 diabetes mellitus with hyperglycemia (7) HTN (hypertension) Onset Date: 05/01/17 Current Visit: No Status: Chronic Qualifiers: Hypertension type: essential hypertension Qualified Code(s): I10 - Essential (primary) hypertension (8) Hypothyroidism Onset Date: 05/01/17 Current Visit: No Status: Chronic Qualifiers: Hypothyroidism type: unspecified Qualified Code(s): E03.9 - Hypothyroidism , unspecified (9) Obesity Current Visit: No Status: Chronic Qualifiers: Obesity classification: adult class 3 (BMI >= 40) (10) Urinary tract infectious disease Current Visit: No Status: Active Plan: Patient with evidence of urinary tract infection. -Start Rocephin -cultures pending, will follow up and adjust as needed. - Plan DVT prophylaxis: Lovenox GI prophylaxis: None Diet: Heart healthy Disposition: Admit to floor with tele. Continue to monitor overnight. Anticipate discharge home in the next 24 hr if workup negative and patient clinically improved. - Advance Directives Does patient have a Living Will: No Does patient have a Durable POA for Healthcare: No
[2019-01-18 18:14] VITALS: BMI 43.7
[2019-01-18] MEDS ORDERED: ENOXAPARIN 40 MG/0.4 ML SQ SCH (18:30)
[2019-01-18 18:44] LABS: Thyroid Stimulating Hormone 9.98 uIU/mL (0.360-3.740)
[2019-01-18] MEDS ORDERED: D50W 25 GM/50 ML SYRINGE IV PRN (19:18)
[2019-01-18] MEDS ORDERED: GLUCAGON 1 MG/VIAL IM PRN (19:18)
[2019-01-18] MEDS ORDERED: POTASSIUM 25 MEQ EFFERV TAB PO ONE (20:00)
[2019-01-18] MEDS ORDERED: CEFTRIAXONE/SWI 1gm 1 GM/10 ML SYR IVP SCH (21:00)
[2019-01-18] MEDS ORDERED: PNEUMOCOCCAL VACCINE 0.5 ML IMVAC ONE (21:00)
[2019-01-18] MEDS: INSULIN -REGULAR HUMAN 50 UNIT/0.5 ML ML SQ SCH (21:13)
--- NOTE | 2019-01-18 22:56 | RAD REPORT ---
EXAM DESCRIPTION: US - CP - 01/18/2019 10:46 pm CLINICAL HISTORY: Syncopal episode CVA symptomology COMPARISON: Head C Spine Mpr Wo Con dated 01/18/2019; Iac W And Wo Cont dated 12/16/2018 TECHNIQUE: Real-time sonographic evaluation of both carotid systems was performed. Doppler interroga tion was performed with waveform tracing bilaterally. FINDINGS: Normal high resistance waveforms are noted in both external carotid arteries. The common c arotid arteries and internal carotid arteries show normal low resistance waveforms. Mild hard plaque is seen in both proximal internal carotid arteries. Peak systolic and end diastolic velocity values and the ICA/CCA ratios are in the non-hemodynamically significant range. Antegrade flow seen in both vertebral arteries. IMPRESSION: Mild hard plaquing noted in both proximal internal carotid arteries. No evidence of a hemodynamically significant stenosis.
[2019-01-19 06:04] LABS: Hematocrit 42.2 % (36.0-45.0); Lymphocytes % 30.5 % (15.3-44.8); MPV 9.8 fL (7.6-11.3); RBC Red Blood Cell Count 4.55 M/uL (3.86-4.86)
--- NOTE | 2019-01-19 06:13 | EKG ---
Test Date: 2019-01-18 Test Time: 14:11:27 Case Specialist: CATE MEASUREMENT RESULTS: Intervals: Rate: 77 IA: 154 QRSD: 124 QT: 472 QTc: 534 [place]: P: 62 IA: 154 QRS: 244 T: 57 INTERPRETIVE STATEMENTS: Atrial-sensed ventricular-paced rhythm tracking sinus rhythm Compared to ECG 04/30/2017 17:06:18 Sinus tachycardia no longer present Right-axis deviation no longer present Left bundle-branch block no longer present Electronically Signed On 01-19-19 06:12:45 CDT by Boris Funez
[2019-01-19 06:21] LABS: ALT/SGPT 15 U/L (12-78); AST/SGOT 13 U/L (15-37); Albumin 2.6 g/dL (3.4-5.0); Alkaline Phosphatase 95 U/L (45-117); BUN Blood Urea Nitrogen 19 mg/dL (7-18); Bicarbonate 29 mmol/L (21-32); Bilirubin Total 0.4 mg/dL (0.2-1.0); Glucose Level 283 mg/dL (74-106); HDL Cholesterol 36 mg/dL (40-60); LDL Cholesterol, Calculated 163 (<130); Phosphorus 1.9 mg/dL (2.5-4.9); Potassium 3.7 mmol/L (3.5-5.1); Protein, Total 6.8 g/dL (6.4-8.2); Sodium Level 139 mmol/L (136-145); Troponin I < 0.02 ng/mL (0.0-0.045)
[2019-01-19] MEDS ORDERED: POTASSIUM CL SA 10 MEQ TAB PO ONE (07:00)
[2019-01-19] MEDS: CEFTRIAXONE/SWI 1gm 1 GM/10 ML SYR IVP SCH ×2 (10:03→21:10)
[2019-01-19] MEDS: POTASS/SODIUM PHOSPHATE 1 PKT POWD.PACK PO SCH ×2 (10:03→12:15)
[2019-01-19] MEDS: INSULIN -REGULAR HUMAN 50 UNIT/0.5 ML ML SQ SCH ×4 (10:03→21:11)
[2019-01-19] MEDS ORDERED: MECLIZINE HCL 12.5 MG TAB PO PRN (10:56)
--- NOTE | 2019-01-19 10:56 | ECHO ---
HEIGHT: 5 ft 5 in WEIGHT: 263 lb 0 oz DATE OF STUDY: 01/19/[address]: Dawn Whittaker MD 2-DIMENSIONAL: YES M.MODE: YES DOPPLER: YES COLOR FLOW: YES TDS: NO PORTABLE: NO DEFINITY: NO BUBBLE STUDY: NO DIAGNOSIS: SYNCOPAL EPISODE CARDIAC HISTORY: CATHERIZATION: NO SURGERY: NO PROSTHETIC VALVE: NO PACEMAKER: YES MEASUREMENTS (cm) DIASTOLIC (NORMALS) SYSTOLIC (NORMALS) IVSd 1.4 (0.6-1.2) LA Diam (1.9-4.0) LVEF 60-69% LVIDd 3.6 (3.5-5.7) LVIDs 2.6 (2.0-3.5) %FS % LVPWd 1.5 (0.6-1.2) Ao Diam 2.7 (2.0-3.7) 2 DIMENSIONAL ASSESSMENT: RIGHT ATRIUM: NORMAL LEFT ATRIUM: NORMAL RIGHT VENTRICLE: NORMAL/PACEMAKER CATHETER LEFT VENTRICLE: NORMAL TRICUSPID VALVE: NORMAL MITRAL VALVE: NORMAL PULMONIC VALVE: NORMAL AORTIC VALVE: NORMAL PERICARDIAL EFFUSION: NONE AORTIC ROOT: NORMAL LEFT VENTRICULAR WALL MOTION: NORMAL. DOPPLER/COLOR FLOW: MILD TRICUSPID REGURGITATION. IMPAIRED LEFT VENTRICULAR RELAXATION. NORMAL RIGHT VENTRICULAR SYSTOLIC PRESSURE. COMMENTS: NORMAL LEFT VENTRICULAR EJECTION FRACTION. PACEMAKER IN RIGHT VENTRICLE OTHERWISE NORMAL 2D ECHO. MILD TRICUSPID REGURGITATION. IMPAIRED LEFT VENTRICULAR RELAXATION. TECHNOLOGIST: JASON CARLISLE
--- NOTE | 2019-01-19 11:13 | P.PN ---
Subjective Date of Service: 01/19/19 Primary Care Provider: Dr. Camarillo, Cardio: Dr. Funez Chief Complaint: Syncopal episode Subjective: No new changes Patient seen and examined at bedside. No family at bedside. Chart reviewed and case discussed with nursing staff. Patient reports no changes from yesterday. Continues report dizziness, especially when moving her even her head in bed. She states that she has a history of Meniere's disease. No acute events noted overnight No other complaints this morning Review of Systems 10-point ROS is otherwise unremarkable Physical Examination - Vital Signs Temperature: 97.6 F Blood Pressure: 171/75 Pulse: 83 Respirations: 18 Pulse Ox (%): 96 - Physical Exam General: Alert, In no apparent distress, Oriented x3, Obese HEENT: Atraumatic, PERRLA, EOMI Neck: Supple, JVD not distended Respiratory: Clear to auscultation bilaterally, Normal air movement Cardiovascular: Regular rate/rhythm, Normal S1 S2 Gastrointestinal: Normal bowel sounds, No tenderness Musculoskeletal: No tenderness Integumentary: No rashes Neurological: Normal speech, Normal tone, Normal affect Lymphatics: No axilla or inguinal lymphadenopathy - Studies Laboratory Data (last 24 hrs) 01/18/19 13:45: PT 20.2 H, INR 1.75 01/18/19 13:45: WBC 11.8 H D, Hgb 14.5, Hct 43.4, Plt Count 217 01/18/19 13:45: Sodium 137, Potassium 3.3 L, BUN 19 H, Creatinine 1.50 H, Glucose 360 H, Magnesium 2.0, Total Bilirubin 0.5, AST 14 L, ALT 16, Alkaline Phosphatase 110 Assessment And Plan - Current Problems (Diagnosis) (1) Syncopal episodes Current Visit: Yes Status: Acute Plan: Unsure of etiology, likely secondary to urinary tract infection vs mechanical fall after standing from a sitting position vs from Meniere's dizziness -echocardiogram done, ejection fraction of 60-69% with pacemaker in place and diastolic failure -bilateral carotid ultrasound with some plaquing but no hemodynamically significant stenosis noted. -continue to monitor -continue to monitor labs -hold IV fluids due to CHF history -continue antibiotics -physical therapy consult Qualifiers: Syncope type: unspecified Qualified Code(s): R55 - Syncope and collapse (2) Atrial fibrillation Current Visit: No Status: Chronic Plan: Stable, will restart home medication Qualifiers: Atrial fibrillation type: chronic Qualified Code(s): I48.2 - Chronic atrial fibrillation (3) CHF (congestive heart failure) Current Visit: No Status: Chronic Plan: Restart home medications. -echo with ejection fraction of 60-69%, pacemaker in place and diastolic dysfunction Qualifiers: Heart failure type: diastolic Heart failure chronicity: chronic Qualified Code(s): I50.32 - Chronic diastolic (congestive) heart failure (4) CAD (coronary artery disease) Onset Date: 05/01/17 Current Visit: No Status: Chronic Qualifiers: Coronary Disease-Associated Artery/Lesion type: [place] artery [place] vs. transplanted heart: [place] heart Associated angina: without angina Qualified Code(s): I25.10 - Atherosclerotic heart disease of [place] coronary artery without angina pectoris (5) Chronic renal disease Current Visit: No Status: Chronic Plan: Creatinine seems to be at baseline Qualifiers: Chronic kidney disease stage: stage 3 (moderate) Qualified Code(s): N18.3 - Chronic kidney disease, stage 3 (moderate) (6) Diabetes mellitus Onset Date: 05/01/17 Current Visit: No Status: Chronic Plan: Accu-Cheks and mild sliding scale insulin. -Will monitor blood sugars and adjust insulin as needed. Qualifiers: Diabetes mellitus type: type 2 Diabetes mellitus predatory animal exterminator insulin use: without predatory animal exterminator use Diabetes mellitus complication status: with hyperglycemia Qualified Code(s): E11.65 - Type 2 diabetes mellitus with hyperglycemia (7) HTN (hypertension) Onset Date: 05/01/17 Current Visit: No Status: Chronic Qualifiers: Hypertension type: essential hypertension Qualified Code(s): I10 - Essential (primary) hypertension (8) Hypothyroidism Onset Date: 05/01/17 Current Visit: No Status: Chronic Qualifiers: Hypothyroidism type: unspecified Qualified Code(s): E03.9 - Hypothyroidism , unspecified (9) Obesity Current Visit: No Status: Chronic Qualifiers: Obesity classification: adult class 3 (BMI >= 40) (10) Urinary tract infectious disease Current Visit: No Status: Active Plan: Patient with evidence of urinary tract infection. -Start Rocephin -cultures pending, will follow up and adjust as needed. (11) Menieres disease Current Visit: Yes Status: Acute Plan: Patient with a history Meniere's disease, she does take a medicine but she is not sure what. -Will try Antivert here in the hospital -physical therapy consultation Qualifiers: Laterality: unspecified laterality Qualified Code(s): H81.09 - Meniere's disease, unspecified ear - Plan DVT prophylaxis: Xarelto GI prophylaxis: None Diet: Heart healthy Disposition: Pending symptomatic improvement and physical therapy evaluation. Anticipate discharge home in the next 24 hr if workup negative and patient clinically improved.
[2019-01-19] MEDS: ISOSORBIDE DINIT 5 MG TAB PO SCH ×2 (13:39→21:12)
[2019-01-19] MEDS: HYDRALAZINE HCL 25 MG TABLET PO SCH ×2 (13:39→21:12)
[2019-01-19] MEDS: ALGAL OIL PO SCH (21:00)
[2019-01-19] MEDS: LEVOMEFOLATE PO SCH (21:00)
[2019-01-20 05:48] LABS: Absolute Lymphocytes (CBC) 2.9 K/uL (0.7-4.9); Basophils % 0.9 % (0-1.3); Hematocrit 41.9 % (36.0-45.0); Lymphocytes % 31.6 % (15.3-44.8); RBC Red Blood Cell Count 4.43 M/uL (3.86-4.86)
[2019-01-20 06:30] LABS: Albumin 2.5 g/dL (3.4-5.0); Bilirubin Total 0.4 mg/dL (0.2-1.0); Magnesium 1.9 mg/dL (1.8-2.4); Phosphorus 2.2 mg/dL (2.5-4.9); Potassium 4.2 mmol/L (3.5-5.1); Protein, Total 6.3 g/dL (6.4-8.2)
[2019-01-20] MEDS ORDERED: POTASS/SODIUM PHOSPHATE 1 PKT POWD.PACK PO SCH (07:00)
[2019-01-20] MEDS: ISOSORBIDE DINIT 5 MG TAB PO SCH ×3 (08:46→21:16)
[2019-01-20] MEDS: SPIRONOLACTONE 25 MG TABLET PO SCH (08:46)
[2019-01-20] MEDS: CEFTRIAXONE/SWI 1gm 1 GM/10 ML SYR IVP SCH (08:46)
[2019-01-20] MEDS: POTASS/SODIUM PHOSPHATE 1 PKT POWD.PACK PO SCH ×3 (08:47→10:33)
[2019-01-20] MEDS: HYDRALAZINE HCL 25 MG TABLET PO SCH ×3 (08:47→21:16)
[2019-01-20] MEDS: RIVAROXABAN 15 MG TABLET PO SCH (08:47)
[2019-01-20] MEDS: ASPIRIN EC 81 MG TAB PO SCH (08:47)
[2019-01-20] MEDS: METOPROLOL XL 50 MG TAB PO SCH (08:47)
[2019-01-20] MEDS: INSULIN -REGULAR HUMAN 50 UNIT/0.5 ML ML SQ SCH ×4 (08:47→21:18)
[2019-01-20] MEDS: FUROSEMIDE 40 MG TABLET PO SCH (08:48)
[2019-01-20] MEDS: LEVOMEFOLATE PO SCH ×2 (08:49→21:00)
[2019-01-20] MEDS: ALGAL OIL PO SCH ×2 (08:49→21:00)
[2019-01-20] MEDS ORDERED: CHOLECALCIFEROL PO SCH (09:00)
[2019-01-20] MEDS ORDERED: DRISDOL (VITAMIN D=ERGOCALCIFEROL) 50000 UNIT CAP PO SCH (09:00)
[2019-01-20] MEDS ORDERED: INSULIN DEGLUDEC 70 UNIT SQ SCH (09:00)
--- NOTE | 2019-01-20 11:54 | P.PN ---
Subjective Date of Service: 01/20/19 Primary Care Provider: Dr. Camarillo, Cardio: Dr. Funez Chief Complaint: Syncopal episode Subjective: No new changes Patient seen and examined at bedside. No family at bedside. Chart reviewed and case discussed with nursing staff. Patient reports no changes from yesterday. Continues report dizziness, especially when moving her even her head in bed. She states that she has a history of Meniere's disease. No acute events noted overnight No other complaints this morning Review of Systems 10-point ROS is otherwise unremarkable Physical Examination - Vital Signs Temperature: 98.5 F Blood Pressure: 163/72 Pulse: 91 Respirations: 18 Pulse Ox (%): 95 - Physical Exam General: Alert, In no apparent distress, Obese HEENT: Atraumatic, PERRLA, EOMI Neck: Supple, JVD not distended Respiratory: Clear to auscultation bilaterally, Normal air movement Cardiovascular: Regular rate/rhythm, Normal S1 S2 Gastrointestinal: Normal bowel sounds, No tenderness Musculoskeletal: No tenderness Integumentary: Rash(es) (Under bilateral breasts, pelvic area, under abdominal folds) Neurological: Normal speech, Normal tone, Normal affect Lymphatics: No axilla or inguinal lymphadenopathy Assessment And Plan - Current Problems (Diagnosis) (1) Syncopal episodes Current Visit: Yes Status: Acute Plan: Unsure of etiology, likely secondary to urinary tract infection vs mechanical fall after standing from a sitting position vs from Meniere's dizziness -echocardiogram done, ejection fraction of 60-69% with pacemaker in place and diastolic failure -bilateral carotid ultrasound with some plaquing but no hemodynamically significant stenosis noted. -continue to monitor -continue to monitor labs -hold IV fluids due to CHF history -continue antibiotics -physical therapy consult Qualifiers: Syncope type: unspecified Qualified Code(s): R55 - Syncope and collapse (2) Atrial fibrillation Current Visit: No Status: Chronic Plan: Stable, will restart home medication Qualifiers: Atrial fibrillation type: chronic (3) CHF (congestive heart failure) Current Visit: No Status: Chronic Plan: Restart home medications. -echo with ejection fraction of 60-69%, pacemaker in place and diastolic dysfunction Qualifiers: Heart failure type: diastolic Heart failure chronicity: chronic Qualified Code(s): I50.32 - Chronic diastolic (congestive) heart failure (4) CAD (coronary artery disease) Onset Date: 05/01/17 Current Visit: No Status: Chronic Qualifiers: Coronary Disease-Associated Artery/Lesion type: [place] artery [place] vs. transplanted heart: [place] heart Associated angina: without angina Qualified Code(s): I25.10 - Atherosclerotic heart disease of [place] coronary artery without angina pectoris (5) Chronic renal disease Current Visit: No Status: Chronic Plan: Creatinine seems to be at baseline Qualifiers: Chronic kidney disease stage: stage 3 (moderate) Qualified Code(s): N18.3 - Chronic kidney disease, stage 3 (moderate) (6) Diabetes mellitus Onset Date: 05/01/17 Current Visit: No Status: Chronic Plan: Accu-Cheks and mild sliding scale insulin. -Will monitor blood sugars and adjust insulin as needed. Qualifiers: Diabetes mellitus type: type 2 Diabetes mellitus jail insulin use: without intermodal owner operator truck driver use Diabetes mellitus complication status: with hyperglycemia Qualified Code(s): E11.65 - Type 2 diabetes mellitus with hyperglycemia (7) HTN (hypertension) Onset Date: 05/01/17 Current Visit: No Status: Chronic Qualifiers: Hypertension type: essential hypertension Qualified Code(s): I10 - Essential (primary) hypertension (8) Hypothyroidism Onset Date: 05/01/17 Current Visit: No Status: Chronic Qualifiers: Hypothyroidism type: unspecified Qualified Code(s): E03.9 - Hypothyroidism , unspecified (9) Obesity Current Visit: No Status: Chronic Qualifiers: Obesity classification: adult class 3 (BMI >= 40) (10) Urinary tract infectious disease Current Visit: No Status: Active Plan: Patient with evidence of urinary tract infection. -continue Rocephin -will change to oral Augmentin upon discharge (11) Menieres disease Current Visit: Yes Status: Acute Plan: Patient with a history Meniere's disease, she does take a medicine but she is not sure what. -Will try Antivert here in the hospital -physical therapy consultation Qualifiers: Laterality: unspecified laterality Qualified Code(s): H81.09 - Meniere's disease, unspecified ear - Plan DVT prophylaxis: Xarelto GI prophylaxis: None Diet: Heart healthy Disposition: Patient after physical therapy evaluation, continues to be anxious to stand and walk due to her prior fall. Per physical therapy, she will benefit from a long-term facility placement for further physical rehabilitation. Social work consulted for placement.
[2019-01-20] MEDS ORDERED: D50W 25 GM/50 ML SYRINGE IV PRN (12:57)
[2019-01-20] MEDS ORDERED: GLUCAGON 1 MG/VIAL IM PRN (12:57)
[2019-01-20] MEDS ORDERED: INSULIN -REGULAR HUMAN 50 UNIT/0.5 ML ML SQ ONE (12:58)
[2019-01-20] MEDS ORDERED: INSULIN GLARGINE 100 UNITS/ML SQ SCH (21:00)
[2019-01-20] MEDS: FAMOTIDINE 20 MG TAB PO SCH (21:16)
[2019-01-20] MEDS: AMOX/K CLAV 500 MG TAB PO SCH (21:16)
[2019-01-20] MEDS ORDERED: INSULIN GLARGINE 100 UNITS/ML SQ ONE (21:23)
[2019-01-21 05:58] LABS: Absolute Lymphocytes (CBC) 3.5 K/uL (0.7-4.9); Basophils % 1.1 % (0-1.3); MPV 9.9 fL (7.6-11.3)
[2019-01-21 06:20] LABS: Albumin 2.5 g/dL (3.4-5.0); Bilirubin Total 0.4 mg/dL (0.2-1.0); Phosphorus 2.2 mg/dL (2.5-4.9); Potassium 4.3 mmol/L (3.5-5.1); Protein, Total 6.7 g/dL (6.4-8.2)
--- NOTE | 2019-01-21 06:45 | EKG ---
Test Date: 2019-01-20 Test Time: 19:32:53 Stage Producer: RT Oleary MEASUREMENT RESULTS: Intervals: Rate: 94 MD: 166 QRSD: 118 QT: 406 QTc: 507 [place]: P: 57 MD: 166 QRS: 246 T: 61 INTERPRETIVE STATEMENTS: Atrial-sensed ventricular-paced rhythm tracking sinus rhythm Compared to ECG 01/18/2019 14:11:27 no significant change from previous ECG Electronically Signed On 01-21-19 06:44:43 CDT by Boris Funez
[2019-01-21] MEDS: LEVOMEFOLATE PO SCH ×2 (09:00→20:54)
[2019-01-21] MEDS: ALGAL OIL PO SCH ×2 (09:00→20:54)
[2019-01-21] MEDS: INSULIN -REGULAR HUMAN 50 UNIT/0.5 ML ML SQ SCH ×4 (09:45→20:53)
[2019-01-21] MEDS: HYDRALAZINE HCL 25 MG TABLET PO SCH ×3 (09:46→20:52)
[2019-01-21] MEDS: POTASS/SODIUM PHOSPHATE 1 PKT POWD.PACK PO SCH ×3 (09:46→11:25)
[2019-01-21] MEDS: METOPROLOL XL 50 MG TAB PO SCH (09:46)
[2019-01-21] MEDS: FUROSEMIDE 40 MG TABLET PO SCH (09:46)
[2019-01-21] MEDS: RIVAROXABAN 15 MG TABLET PO SCH (09:46)
[2019-01-21] MEDS: ISOSORBIDE DINIT 5 MG TAB PO SCH ×3 (09:47→20:53)
[2019-01-21] MEDS: ASPIRIN EC 81 MG TAB PO SCH (09:47)
[2019-01-21] MEDS: SPIRONOLACTONE 25 MG TABLET PO SCH (09:47)
[2019-01-21] MEDS: AMOX/K CLAV 500 MG TAB PO SCH ×2 (09:47→20:52)
[2019-01-21] MEDS: ACETAMINOPHEN 500 MG TAB PO PRN ×2 (11:25→18:09)
--- NOTE | 2019-01-21 12:26 | RAD REPORT ---
EXAM DESCRIPTION: RAD - Foot Right 2 View - 01/21/2019 12:15 pm CLINICAL HISTORY: Foot pain FINDINGS: A needle measuring 12 millimeters is present within the plantar soft tissue in the region of the second proximal phalanx. No fracture or dislocation seen. Osteoporosis Vascular calcifications Calcaneal spurs
--- NOTE | 2019-01-21 13:59 | P.PN ---
Subjective Date of Service: 01/21/19 Primary Care Provider: Dr. Camarillo, Cardio: Dr. Funez Chief Complaint: Syncopal episode Subjective: No new changes Patient seen and examined at bedside. No family at bedside. Chart reviewed and case discussed with nursing staff. Patient reports dizziness had improved. She states that she has a history of Meniere's disease. No acute events noted overnight Complaining of right foot pain. Review of Systems 10-point ROS is otherwise unremarkable Physical Examination - Vital Signs Temperature: 96.8 F Blood Pressure: 109/57 Pulse: 94 Respirations: 18 Pulse Ox (%): 94 - Physical Exam General: Alert, In no apparent distress, Other (elderly) HEENT: Atraumatic, PERRLA, EOMI Neck: Supple, JVD not distended Respiratory: Clear to auscultation bilaterally, Normal air movement Cardiovascular: Regular rate/rhythm, Normal S1 S2 Gastrointestinal: Normal bowel sounds, No tenderness Musculoskeletal: No tenderness Integumentary: No rashes Neurological: Normal speech, Normal tone, Normal affect Lymphatics: No axilla or inguinal lymphadenopathy Assessment And Plan - Current Problems (Diagnosis) (1) Syncopal episodes Current Visit: Yes Status: Acute Plan: Improving; Unsure of etiology, likely secondary to urinary tract infection vs mechanical fall after standing from a sitting position vs from Meniere's dizziness -echocardiogram done, ejection fraction of 60-69% with pacemaker in place and diastolic failure -bilateral carotid ultrasound with some plaquing but no hemodynamically significant stenosis noted. -continue to monitor -continue to monitor labs -hold IV fluids due to CHF history -continue antibiotics -Continue physical therapy Qualifiers: Syncope type: unspecified Qualified Code(s): R55 - Syncope and collapse (2) Atrial fibrillation Current Visit: No Status: Chronic Plan: Stable, will continue home medication Qualifiers: Atrial fibrillation type: chronic (3) CHF (congestive heart failure) Current Visit: No Status: Chronic Plan: Continue home medications. -echo with ejection fraction of 60-69%, pacemaker in place and diastolic dysfunction Qualifiers: Heart failure type: diastolic Heart failure chronicity: chronic Qualified Code(s): I50.32 - Chronic diastolic (congestive) heart failure (4) CAD (coronary artery disease) Onset Date: 05/01/17 Current Visit: No Status: Chronic Qualifiers: Coronary Disease-Associated Artery/Lesion type: [place] artery [place] vs. transplanted heart: [place] heart Associated angina: without angina Qualified Code(s): I25.10 - Atherosclerotic heart disease of [place] coronary artery without angina pectoris (5) Chronic renal disease Current Visit: No Status: Chronic Plan: Creatinine seems to be at baseline Qualifiers: Chronic kidney disease stage: stage 3 (moderate) Qualified Code(s): N18.3 - Chronic kidney disease, stage 3 (moderate) (6) Diabetes mellitus Onset Date: 05/01/17 Current Visit: No Status: Chronic Plan: Accu-Cheks and mild sliding scale insulin along with lantus -Will monitor blood sugars and adjust insulin as needed. Qualifiers: Diabetes mellitus type: type 2 Diabetes mellitus terminal system operator insulin use: without assisted use Diabetes mellitus complication status: with hyperglycemia Qualified Code(s): E11.65 - Type 2 diabetes mellitus with hyperglycemia (7) HTN (hypertension) Onset Date: 05/01/17 Current Visit: No Status: Chronic Qualifiers: Hypertension type: essential hypertension Qualified Code(s): I10 - Essential (primary) hypertension (8) Hypothyroidism Onset Date: 05/01/17 Current Visit: No Status: Chronic Qualifiers: Hypothyroidism type: unspecified Qualified Code(s): E03.9 - Hypothyroidism , unspecified (9) Obesity Current Visit: No Status: Chronic Qualifiers: Obesity classification: adult class 3 (BMI >= 40) (10) Urinary tract infectious disease Current Visit: No Status: Active Plan: Patient with evidence of urinary tract infection. -continue oral Augmentin (11) Menieres disease Current Visit: Yes Status: Acute Plan: Patient with a history Meniere's disease, she does take a medicine but she is not sure what. -Will try Antivert here in the hospital -physical therapy consultation Qualifiers: Laterality: unspecified laterality Qualified Code(s): H81.09 - Meniere's disease, unspecified ear - Plan DVT prophylaxis: Xarelto GI prophylaxis: None Diet: Heart healthy Disposition: Patient after physical therapy evaluation, continues to be anxious to stand and walk due to her prior fall. Per physical therapy, she will benefit from a half-way facility placement for further physical rehabilitation. Social work on board for placement.
[2019-01-21] MEDS: FAMOTIDINE 20 MG TAB PO SCH (20:52)
[2019-01-21] MEDS ORDERED: INSULIN GLARGINE 100 UNITS/ML SQ SCH (21:00)
[2019-01-21] MEDS ORDERED: ENSURE CLEAR 200 ML CAN PO SCH (21:00)
[2019-01-21] MEDS ORDERED: INSULIN GLARGINE 100 UNITS/ML SQ ONE ×2 (21:23→22:59)
[2019-01-22 06:30] LABS: Potassium 4.2 mmol/L (3.5-5.1)
[2019-01-22] MEDS: ALGAL OIL PO SCH ×2 (09:00→21:00)
[2019-01-22] MEDS: LEVOMEFOLATE PO SCH ×2 (09:00→21:00)
[2019-01-22] MEDS: INSULIN -REGULAR HUMAN 50 UNIT/0.5 ML ML SQ SCH ×4 (09:35→22:43)
--- NOTE | 2019-01-22 10:21 | P.PN ---
Subjective Date of Service: 01/22/19 Primary Care Provider: Dr. Camarillo, Cardio: Dr. Funez Chief Complaint: Syncopal episode Subjective: No C/O voiced Patient seen and examined at bedside. No family at bedside. Chart reviewed and case discussed with nursing staff. Patient reports dizziness had improved. She states that she has a history of Meniere's disease. No acute events noted overnight Complaining of right foot pain, improved Review of Systems 10-point ROS is otherwise unremarkable Physical Examination - Vital Signs Temperature: 97.3 F Blood Pressure: 145/68 Pulse: 86 Respirations: 17 Pulse Ox (%): 96 - Physical Exam General: Alert, In no apparent distress, Oriented x3 HEENT: Atraumatic, PERRLA, EOMI Neck: Supple, JVD not distended Respiratory: Clear to auscultation bilaterally, Normal air movement Cardiovascular: Regular rate/rhythm, Normal S1 S2 Gastrointestinal: Normal bowel sounds, No tenderness Musculoskeletal: No tenderness Integumentary: No rashes Neurological: Normal speech, Normal tone, Normal affect Assessment And Plan - Current Problems (Diagnosis) (1) Syncopal episodes Current Visit: Yes Status: Acute Plan: Improving; Unsure of etiology, likely secondary to urinary tract infection vs mechanical fall after standing from a sitting position vs from Meniere's dizziness -echocardiogram done, ejection fraction of 60-69% with pacemaker in place and diastolic failure -bilateral carotid ultrasound with some plaquing but no hemodynamically significant stenosis noted. -continue to monitor -continue to monitor labs -hold IV fluids due to CHF history -continue antibiotics -Continue physical therapy Qualifiers: Syncope type: unspecified Qualified Code(s): R55 - Syncope and collapse (2) Atrial fibrillation Current Visit: No Status: Chronic Plan: Stable, will continue home medication Qualifiers: Atrial fibrillation type: chronic (3) CHF (congestive heart failure) Current Visit: No Status: Chronic Plan: Continue home medications. -echo with ejection fraction of 60-69%, pacemaker in place and diastolic dysfunction Qualifiers: Heart failure type: diastolic Heart failure chronicity: chronic Qualified Code(s): I50.32 - Chronic diastolic (congestive) heart failure (4) CAD (coronary artery disease) Onset Date: 05/01/17 Current Visit: No Status: Chronic Qualifiers: Coronary Disease-Associated Artery/Lesion type: [place] artery [place] vs. transplanted heart: [place] heart Associated angina: without angina Qualified Code(s): I25.10 - Atherosclerotic heart disease of [place] coronary artery without angina pectoris (5) Chronic renal disease Current Visit: No Status: Chronic Plan: Creatinine seems to be at baseline Qualifiers: Chronic kidney disease stage: stage 3 (moderate) Qualified Code(s): N18.3 - Chronic kidney disease, stage 3 (moderate) (6) Diabetes mellitus Onset Date: 05/01/17 Current Visit: No Status: Chronic Plan: Accu-Cheks and mild sliding scale insulin along with lantus -Will monitor blood sugars and adjust insulin as needed. Qualifiers: Diabetes mellitus type: type 2 Diabetes mellitus senior living insulin use: without medical terminologist use Diabetes mellitus complication status: with hyperglycemia Qualified Code(s): E11.65 - Type 2 diabetes mellitus with hyperglycemia (7) HTN (hypertension) Onset Date: 05/01/17 Current Visit: No Status: Chronic Qualifiers: Hypertension type: essential hypertension Qualified Code(s): I10 - Essential (primary) hypertension (8) Hypothyroidism Onset Date: 05/01/17 Current Visit: No Status: Chronic Qualifiers: Hypothyroidism type: unspecified Qualified Code(s): E03.9 - Hypothyroidism , unspecified (9) Obesity Current Visit: No Status: Chronic Qualifiers: Obesity classification: adult class 3 (BMI >= 40) (10) Urinary tract infectious disease Current Visit: No Status: Active Plan: Patient with evidence of urinary tract infection. -continue oral Augmentin (11) Menieres disease Current Visit: Yes Status: Acute Plan: Patient with a history Meniere's disease, she does take a medicine but she is not sure what. -Will try Antivert here in the hospital -physical therapy consultation Qualifiers: Laterality: unspecified laterality Qualified Code(s): H81.09 - Meniere's disease, unspecified ear - Plan DVT prophylaxis: Xarelto GI prophylaxis: None Diet: Heart healthy Disposition: Patient after physical therapy evaluation, continues to be anxious to stand and walk due to her prior fall. Per physical therapy, she will benefit from a [facility] facility placement for further physical rehabilitation. Social work on board for placement.
[2019-01-22] MEDS: ISOSORBIDE DINIT 5 MG TAB PO SCH ×3 (10:57→22:41)
[2019-01-22] MEDS: AMOX/K CLAV 500 MG TAB PO SCH ×2 (10:58→22:41)
[2019-01-22] MEDS: RIVAROXABAN 15 MG TABLET PO SCH (10:58)
[2019-01-22] MEDS: HYDRALAZINE HCL 25 MG TABLET PO SCH ×3 (10:58→22:42)
[2019-01-22] MEDS: ASPIRIN EC 81 MG TAB PO SCH (10:58)
[2019-01-22] MEDS: METOPROLOL XL 50 MG TAB PO SCH (10:58)
[2019-01-22] MEDS: SPIRONOLACTONE 25 MG TABLET PO SCH (10:58)
[2019-01-22] MEDS: FUROSEMIDE 40 MG TABLET PO SCH (10:59)
[2019-01-22] MEDS ORDERED: D50W 25 GM/50 ML SYRINGE IV PRN (17:29)
[2019-01-22] MEDS ORDERED: GLUCAGON 1 MG/VIAL IM PRN (17:29)
[2019-01-22] MEDS: GABAPENTIN 100 MG CAP PO SCH (22:41)
[2019-01-22] MEDS: FAMOTIDINE 20 MG TAB PO SCH (22:41)
[2019-01-22] MEDS: INSULIN GLARGINE 100 UNITS/ML SQ SCH (22:42)
[2019-01-23 05:28] LABS: Magnesium 1.9 mg/dL (1.8-2.4); Potassium 5.5 mmol/L (3.5-5.1)
[2019-01-23] MEDS: INSULIN -REGULAR HUMAN 50 UNIT/0.5 ML ML SQ SCH ×4 (07:30→22:39)
[2019-01-23] MEDS: INSULIN GLARGINE 100 UNITS/ML SQ SCH ×2 (08:00→22:38)
[2019-01-23] MEDS: SPIRONOLACTONE 25 MG TABLET PO SCH (09:00)
[2019-01-23] MEDS: FUROSEMIDE 40 MG TABLET PO SCH (09:00)
[2019-01-23] MEDS: ISOSORBIDE DINIT 5 MG TAB PO SCH ×3 (09:00→22:37)
[2019-01-23] MEDS: LEVOMEFOLATE PO SCH ×2 (09:00→21:00)
[2019-01-23] MEDS: RIVAROXABAN 15 MG TABLET PO SCH (09:00)
[2019-01-23] MEDS: ASPIRIN EC 81 MG TAB PO SCH (09:00)
[2019-01-23] MEDS: ALGAL OIL PO SCH ×2 (09:00→21:00)
[2019-01-23] MEDS: HYDRALAZINE HCL 25 MG TABLET PO SCH ×3 (09:00→22:37)
[2019-01-23] MEDS: METOPROLOL XL 50 MG TAB PO SCH (09:00)
[2019-01-23] MEDS: AMOX/K CLAV 500 MG TAB PO SCH ×2 (09:00→22:38)
--- NOTE | 2019-01-23 16:18 | P.PN ---
Subjective Date of Service: 01/23/19 Primary Care Provider: Dr. Camarillo, Cardio: Dr. Funez Chief Complaint: Syncopal episode Patient seen and examined at bedside. No family at bedside. Chart reviewed and case discussed with nursing staff. Patient reports dizziness had improved. She states that she has a history of Meniere's disease. No acute events noted overnight Complaining of right foot pain, improved Review of Systems 10-point ROS is otherwise unremarkable Physical Examination - Vital Signs Temperature: 97.3 F Blood Pressure: 137/64 Pulse: 80 Respirations: 18 Pulse Ox (%): 95 - Physical Exam General: Alert, In no apparent distress HEENT: Atraumatic, PERRLA, EOMI Neck: Supple, JVD not distended Respiratory: Clear to auscultation bilaterally, Normal air movement Cardiovascular: Regular rate/rhythm, Normal S1 S2 Gastrointestinal: Normal bowel sounds, No tenderness Musculoskeletal: No tenderness Integumentary: No rashes Neurological: Normal speech, Normal tone, Normal affect Lymphatics: No axilla or inguinal lymphadenopathy Assessment And Plan - Current Problems (Diagnosis) (1) Syncopal episodes Status: Acute Plan: Improving; Unsure of etiology, likely secondary to urinary tract infection vs mechanical fall after standing from a sitting position vs from Meniere's dizziness -echocardiogram done, ejection fraction of 60-69% with pacemaker in place and diastolic failure -bilateral carotid ultrasound with some plaquing but no hemodynamically significant stenosis noted. -continue to monitor -continue to monitor labs -hold IV fluids due to CHF history -continue antibiotics -Continue physical therapy Qualifiers: Syncope type: unspecified Qualified Code(s): R55 - Syncope and collapse (2) Atrial fibrillation Status: Chronic Plan: Stable, will continue home medication Qualifiers: Atrial fibrillation type: chronic (3) CHF (congestive heart failure) Status: Chronic Plan: Continue home medications. -echo with ejection fraction of 60-69%, pacemaker in place and diastolic dysfunction Qualifiers: Heart failure type: diastolic Heart failure chronicity: chronic Qualified Code(s): I50.32 - Chronic diastolic (congestive) heart failure (4) CAD (coronary artery disease) Onset Date: 05/01/17 Status: Chronic Qualifiers: Coronary Disease-Associated Artery/Lesion type: [place] artery [place] vs. transplanted heart: [place] heart Associated angina: without angina Qualified Code(s): I25.10 - Atherosclerotic heart disease of [place] coronary artery without angina pectoris (5) Chronic renal disease Status: Chronic Plan: Creatinine seems to be at baseline Qualifiers: Chronic kidney disease stage: stage 3 (moderate) Qualified Code(s): N18.3 - Chronic kidney disease, stage 3 (moderate) (6) Diabetes mellitus Onset Date: 05/01/17 Status: Chronic Plan: Accu-Cheks and mild sliding scale insulin along with lantus -Will monitor blood sugars and adjust insulin as needed. Qualifiers: Diabetes mellitus type: type 2 Diabetes mellitus long-term insulin use: without long-term use Diabetes mellitus complication status: with hyperglycemia Qualified Code(s): E11.65 - Type 2 diabetes mellitus with hyperglycemia (7) HTN (hypertension) Onset Date: 05/01/17 Status: Chronic Qualifiers: Hypertension type: essential hypertension Qualified Code(s): I10 - Essential (primary) hypertension (8) Hypothyroidism Onset Date: 05/01/17 Status: Chronic Qualifiers: Hypothyroidism type: unspecified Qualified Code(s): E03.9 - Hypothyroidism , unspecified (9) Obesity Status: Chronic Qualifiers: Obesity classification: adult class 3 (BMI >= 40) (10) Urinary tract infectious disease Status: Active Plan: Patient with evidence of urinary tract infection. -continue oral Augmentin (11) Menieres disease Status: Acute Plan: Patient with a history Meniere's disease, she does take a medicine but she is not sure what. -Will try Antivert here in the hospital -physical therapy consultation Qualifiers: Laterality: unspecified laterality Qualified Code(s): H81.09 - Meniere's disease, unspecified ear (12) Foot pain, right Status: Acute (13) Foreign body (FB) in soft tissue Status: Acute Plan: Foot x-ray with needle noted in the right foot. General surgery consulted, awaiting recommendations. - Plan DVT prophylaxis: Xarelto GI prophylaxis: None Diet: Heart healthy Disposition: Patient after physical therapy evaluation, continues to be anxious to stand and walk due to her prior fall. Per physical therapy, she will benefit from a half-way facility placement for further physical rehabilitation. Social work on board for placement.
[2019-01-23] MEDS: GABAPENTIN 100 MG CAP PO SCH (22:38)
[2019-01-23] MEDS: FAMOTIDINE 20 MG TAB PO SCH (22:38)
[2019-01-24] MEDS: ALGAL OIL PO SCH (09:00)
[2019-01-24] MEDS: INSULIN GLARGINE 100 UNITS/ML SQ SCH (09:00)
[2019-01-24] MEDS: INSULIN -REGULAR HUMAN 50 UNIT/0.5 ML ML SQ SCH (09:00)
[2019-01-24] MEDS: LEVOMEFOLATE PO SCH (09:00)
[2019-01-24] MEDS: ISOSORBIDE DINIT 5 MG TAB PO SCH (09:01)
[2019-01-24] MEDS: METOPROLOL XL 50 MG TAB PO SCH (09:01)
[2019-01-24] MEDS: RIVAROXABAN 15 MG TABLET PO SCH (09:02)
[2019-01-24] MEDS: ASPIRIN EC 81 MG TAB PO SCH (09:02)
[2019-01-24] MEDS: AMOX/K CLAV 500 MG TAB PO SCH (09:02)
[2019-01-24] MEDS: HYDRALAZINE HCL 25 MG TABLET PO SCH (09:03)
[2019-01-24] MEDS: SPIRONOLACTONE 25 MG TABLET PO SCH (09:03)
[2019-01-24] MEDS: FUROSEMIDE 40 MG TABLET PO SCH (09:03)
[2019-01-24 10:26] VITALS: O2SAT 94
[2019-01-24 12:21] VITALS: BP 137/64; TEMP 97.3
--- NOTE | 2019-01-24 12:24 | P.DS ---
Admission Date: 01/18/19 Discharge Date: 01/24/19 Primary Care Provider: Dr. Camarillo, Cardio: Dr. Funez Disposition: TRANSFER TO LONGTERM Discharge Condition: GOOD Reason for Admission: Syncopal episode - Problems (1) Syncopal episodes Status: Acute Qualifiers: Syncope type: unspecified Qualified Code(s): R55 - Syncope and collapse (2) Atrial fibrillation Status: Chronic Qualifiers: Atrial fibrillation type: chronic (3) CHF (congestive heart failure) Status: Chronic Qualifiers: Heart failure type: diastolic Heart failure chronicity: chronic Qualified Code(s): I50.32 - Chronic diastolic (congestive) heart failure (4) CAD (coronary artery disease) Onset Date: 05/01/17 Status: Chronic Qualifiers: Coronary Disease-Associated Artery/Lesion type: [place] artery [place] vs. transplanted heart: [place] heart Associated angina: without angina Qualified Code(s): I25.10 - Atherosclerotic heart disease of [place] coronary artery without angina pectoris (5) Chronic renal disease Status: Chronic Qualifiers: Chronic kidney disease stage: stage 3 (moderate) Qualified Code(s): N18.3 - Chronic kidney disease, stage 3 (moderate) (6) Diabetes mellitus Onset Date: 05/01/17 Status: Chronic Qualifiers: Diabetes mellitus type: type 2 Diabetes mellitus fci insulin use: without termite exterminator use Diabetes mellitus complication status: with hyperglycemia Qualified Code(s): E11.65 - Type 2 diabetes mellitus with hyperglycemia (7) HTN (hypertension) Onset Date: 05/01/17 Status: Chronic Qualifiers: Hypertension type: essential hypertension Qualified Code(s): I10 - Essential (primary) hypertension (8) Hypothyroidism Onset Date: 05/01/17 Status: Chronic Qualifiers: Hypothyroidism type: unspecified Qualified Code(s): E03.9 - Hypothyroidism , unspecified (9) Obesity Status: Chronic Qualifiers: Obesity classification: adult class 3 (BMI >= 40) (10) Urinary tract infectious disease Status: Active (11) Menieres disease Status: Acute Qualifiers: Laterality: unspecified laterality Qualified Code(s): H81.09 - Meniere's disease, unspecified ear (12) Foot pain, right Status: Acute (13) Foreign body (FB) in soft tissue Status: Acute Brief History of Present Illness: This is a 78-year-old female with past medical history of atrial fibrillation, CHF, [id number]-[id number] diabetes, hypertension, hypothyroidism and chronic renal disease who presented to the emergency room with episode of syncope. Per patient and son at bedside, patient fell this morning. She had her face but not her head. She was sitting up in her chair, sleeping. It seems that when she woke up and got up from the chair, she fell. She denies any symptoms prior to the fall. She denied any dizziness, chest pain, shortness of breath at that time. She states that after the fall though she has been more dizzy. She also endorses burning on urination, frequency and urgency of urination. She is not sure how long this has been going on. In the ER, blood pressure was 110/59, heart rate of 87, respirations 16, afebrile at 98.6, 95% on room air and a BMI of 45.14. Her labs was remarkable for hypo kalemia, creatinine of 1.5, blood sugar of 360. Her urine studies was remarkable for nitrite and loaded with bacteria. Her chest x-ray was without any acute abnormalities. Head CT was negative. In the ER, she received Rocephin, insulin, IV fluids 500 bolus. At the time of my exam, she was alert oriented x3, in no acute distress and hemodynamically stable. She states her dizziness is kind of improved at this time. Hospital Course: Patient was admitted for syncopal episode, that was improved and resolved. This was likely secondary UTI versus mechanical fall after sitting from a standing position or for Meniere's disease. She was started on meclizine, her symptoms of dizziness improved and then resolved. Echocardiogram was done, ejection fraction 66 9% with a pacemaker in place and diastolic failure. She also had a bilateral carotid ultrasound done with some plaquing but no hemodynamically significant stenosis that was noted. Physical therapy was consulted, she initially was working well with physical therapy. She started complaining of right foot pain, foot x-ray was done which showed a needle in the soft tissue. General surgery was consulted, they recommended that this procedure be done as an outpatient. Patient continued to improve, it was recommended that she may benefit from a alf facility placement. Social work was consulted and [place] once she was accepted. She otherwise did well throughout the stay. She was instructed to follow up with Dr. require as an outpatient. Patient verbalized understanding. All questions were answered. She was then discharged to [facility] in a safe and stable manner. Vital Signs/Physical Exam: Temp Pulse Resp BP Pulse Ox 97.3 F 80 18 137/64 95 01/24/19 12:20 01/24/19 12:20 01/24/19 12:20 01/24/19 12:20 01/24/19 12:20 General: Alert, In no apparent distress HEENT: Atraumatic, PERRLA, EOMI Neck: Supple, JVD not distended Respiratory: Clear to auscultation bilaterally, Normal air movement Cardiovascular: Regular rate/rhythm, Normal S1 S2 Gastrointestinal: Normal bowel sounds, No tenderness Musculoskeletal: No tenderness Integumentary: No rashes Neurological: Normal speech, Normal tone, Normal affect Lymphatics: No axilla or inguinal lymphadenopathy Laboratory Data at Discharge: WBC 10.3 K/uL (4.3-10.9) 01/21/19 05:36 Hgb 14.2 g/dL (12.0-15.0) 01/21/19 05:36 Hct 41.0 % (36.0-45.0) 01/21/19 05:36 Plt Count 199 K/uL (152-406) 01/21/19 05:36 PT 20.2 SECONDS (9.5-12.5) H 01/18/19 13:45 INR 1.75 01/18/19 13:45 Sodium 133 mmol/L (136-145) L 01/23/19 04:52 Potassium 5.5 mmol/L (3.5-5.1) H 01/23/19 04:52 BUN 29 mg/dL (7-18) H 01/23/19 04:52 Creatinine 1.42 mg/dL (0.55-1.3) H 01/23/19 04:52 Glucose 350 mg/dL (74-106) H 01/23/19 04:52 Phosphorus 3.0 mg/dL (2.5-4.9) 01/22/19 05:27 Magnesium 1.9 mg/dL (1.8-2.4) 01/23/19 04:52 Total Bilirubin 0.4 mg/dL (0.2-1.0) 01/21/19 05:36 AST 8 U/L (15-37) L 01/21/19 05:36 ALT 15 U/L (12-78) 01/21/19 05:36 Alkaline Phosphatase 90 U/L (45-117) 01/21/19 05:36 Troponin I < 0.02 ng/mL (0.0-0.045) 01/19/19 05:39 Triglycerides 297 mg/dL (<150) H 01/19/19 05:39 Cholesterol 258 mg/dL (<200) H 01/19/19 05:39 HDL Cholesterol 36 mg/dL (40-60) L 01/19/19 05:39 Cholesterol/HDL Ratio 7.17 01/19/19 05:39 Home Medications: Levomefolate/Algal Oil [Deplin-Algal Oil 15 mg Capsule] 15 mg PO BID 04/30/17 Aspirin [Ecotrin 81 MG] 81 mg PO DAILY 07/15/17 Cholecalciferol (Vitamin D3) [Dialyvite Vitamin D3 Max] 50,000 unit PO SEECOM Furosemide [Lasix*] 40 mg PO DAILY 07/15/17 Hydralazine [Apresoline*] 25 mg PO TID 07/15/17 Isosorbide Dinitrate 10 mg PO TID 07/15/17 Metoprolol Succinate [Toprol Xl*] 50 mg PO DAILY 07/15/17 Rivaroxaban [Xarelto*] 15 mg PO DAILY 07/15/17 Spironolactone [Aldactone*] 1 tab PO DAILY 07/15/17 Insulin Degludec [Tresiba Flextouch U-200] 70 units SQ DAILY 01/19/19 Amox/Clavulanate [Augmentin 500-125 mg Tab*] 500 mg PO BID #8 tab 01/24/19 New Medications: Amox/Clavulanate [Augmentin 500-125 mg Tab*] 500 mg PO BID #8 tab Patient Discharge Instructions: Please follow up with Dr. Silva in 1-2 weeks for follow up on the foreign body in the right foot. Return to the ER for worsening symptoms. Diet: AHA Activity: Ad abraham Followup: Kevin Silva MD [ACTIVE - CAN ADMIT] - 1-2 Weeks (Call to schedule an appointment) Rafael Fuller JR DPM [ASSOCIATE-ACTIVE - CAN ADMIT] - Time spent managing pt's care (in minutes): 55
== END 2019-01-24 11:30 ==
LOC: ER 12:48 → ERHOLD 15:23 → INTOOBSV 15:23 → OBSVTOIN 15:23 → 2ND 16:54 → INTOOBSV 01-20 11:56 → OBSVTOIN 01-20 11:56
PROVIDERS: ADMIT Family Medicine; ATTEND Family Medicine
DX: N39.0 Urinary tract infection, site not specified (principal); R55 Syncope and collapse; I48.91 Unspecified atrial fibrillation; I13.0 Hypertensive heart and chronic kidney disease with heart failure and stage 1 through stage 4 chronic kidney disease, or unspecified chronic kidney disease; E11.22 Type 2 diabetes mellitus with diabetic chronic kidney disease; E11.65 Type 2 diabetes mellitus with hyperglycemia; N18.3 Chronic kidney disease, stage 3 (moderate); I50.32 Chronic diastolic (congestive) heart failure; E03.9 Hypothyroidism, unspecified; H81.09 Meniere's disease, unspecified ear; W45.8XXA Other foreign body or object entering through skin, initial encounter; Y92.009 Unspecified place in unspecified non-institutional (private) residence as the place of occurrence of the external cause; I25.10 Atherosclerotic heart disease of native coronary artery without angina pectoris; E66.9 Obesity, unspecified; Z68.41 Body mass index [BMI] 40.0-44.9, adult; Z95.0 Presence of cardiac pacemaker; Z88.2 Allergy status to sulfonamides; Z23 Encounter for immunization
CPT/HCPCS: 96361; 93005 ×2; 93306; 87088; 85025 ×4; 87086; 80048 ×3; 36415 ×6; 83735 ×3; 82550; 82947 ×4; 84100 ×4; 85610; 80061; 82962 ×29; 80076; 84443; 87077; 87186; 84484 ×3; 84439; 80053 ×3; 83880; 70450; 72125; 71045; 73620; 90471; 93880; 90670; 97110 ×3; 97112; 97116 ×2; 97161; 97530 ×5; 94760 ×11; 96375; 96374; 99285; J1650; J0696 ×4; G0378 ×9; 81003; 81015; J1815